=== PATIENT | female | born 1980 | race Caucasian/White ===

== ENCOUNTER 2020-06-09 13:40 | Outpatient (CLI) | payer MEDICAID, SELFPAY ==
--- NOTE | 2020-06-09 13:50 | US_ITS ---
WS: [id number] ULTRASOUND THYROID TECHNIQUE: Ultrasound of the thyroid. CLINICAL INFORMATION: THYROMEGALY/HYPOTHYROID COMPARISON: 4 [id number] FINDINGS: Thyroid: Right and left thyroid lobes are normal in size and echotexture. Right thyroid lobe: 4.9 cm x 1.8 cm x 2.3 cm Hypoechoic ill-defined region in the right thyroid measuring 12.5 mm x5.5 mm. Left thyroid lobe: 4.7 cm x 1.9 cm x 1.9 cm. Small hypoechoic nodule left thyroid measuring 6.5 x 3.0 mm Isthmus: 4.1 mm. Cervical lymphadenopathy: None. US/US thyroid [id number] IMPRESSION: 1. Small hypoechoic left thyroid nodule measuring 6.5 x 3.0 mm similar to 2019 . 2. Somewhat ill-defined hypoechoic region in the right thyroid measuring 12.9 x 5.5 mm. This is nonspecific and new or better seen today compared to 2019. 3. Otherwise no new findings. No lesions to target for biopsy. 4. Recommend continued annual surveillance.
== END 2020-06-09 13:41 | disposition home or self-care (01) ==
LOC: RAD 13:42
PROVIDERS: Family Provider Nurse Practitioner; PCP Nurse Practitioner; Visit Provider Nurse Practitioner Family
DX: E04.9 Nontoxic goiter, unspecified (principal); E03.9 Hypothyroidism, unspecified; E04.1 Nontoxic single thyroid nodule
CPT/HCPCS: 76536

== ENCOUNTER → 2022-03-15 12:13 | Outpatient (BNVA) | payer MEDICAID, SELFPAY | PROVIDERS: Family Provider Nurse Practitioner; PCP Nurse Practitioner Family; Visit Provider Nurse Practitioner Family | DX: R04.2 Hemoptysis (principal); E55.9 Vitamin D deficiency, unspecified; E03.8 Other specified hypothyroidism; M79.18 Myalgia, other site; J30.89 Other allergic rhinitis; F41.9 Anxiety disorder, unspecified; F32.A Depression, unspecified; M25.562 Pain in left knee; M79.10 Myalgia, unspecified site; M25.50 Pain in unspecified joint; Z11.59 Encounter for screening for other viral diseases; M25.561 Pain in right knee; W19.XXXA Unspecified fall, initial encounter; Y92.009 Unspecified place in unspecified non-institutional (private) residence as the place of occurrence of the external cause; I10 Essential (primary) hypertension; E04.1 Nontoxic single thyroid nodule; Z12.31 Encounter for screening mammogram for malignant neoplasm of breast; F17.200 Nicotine dependence, unspecified, uncomplicated | CPT/HCPCS: 80053; 80061; 82306; 84439; 84443; 84481; 84550; 85651; 86140; 86200; 86431; 86705; 86706; 86709; 86803; 87340 ==

== ENCOUNTER → 2022-03-21 09:38 | Outpatient (BNVA) | payer MEDICAID, SELFPAY | PROVIDERS: Family Provider Nurse Practitioner; PCP Nurse Practitioner Family; Visit Provider Nurse Practitioner Family | DX: R04.2 Hemoptysis (principal); M25.562 Pain in left knee; W19.XXXA Unspecified fall, initial encounter; Y92.009 Unspecified place in unspecified non-institutional (private) residence as the place of occurrence of the external cause; M25.561 Pain in right knee | CPT/HCPCS: 71047; 73562 ==

== ENCOUNTER → 2022-04-18 09:20 | Outpatient (BNVA) | payer MEDICAID, SELFPAY | PROVIDERS: Family Provider Nurse Practitioner; PCP Nurse Practitioner Family; Visit Provider Internal Medicine Pulmonary Disease | DX: J44.9 Chronic obstructive pulmonary disease, unspecified (principal); R06.02 Shortness of breath; F17.210 Nicotine dependence, cigarettes, uncomplicated | CPT/HCPCS: 36415; 80053; 82103; 83880; 85025; 99204 ==

== ENCOUNTER 2022-04-19 09:46 | Outpatient (CLI) | payer MEDICAID, SELFPAY ==
--- NOTE | 2022-04-19 10:15 | CT_ITS ---
WS: [id number] CT CHEST TECHNIQUE: Contrast enhanced CT of the chest with coronal and sagittal reformatted images. CLINICAL INFORMATION: COUGHING UP BLOOD COMPARISON: None. DLP: 760.[address] scans at [facility] use at least one of these dose optimization techniques: automated e xposure control; mA and/or kV adjustment per patient size (includes targeted exams where dose is matc hed to clinical indication); or iterative reconstruction. FINDINGS: Lungs are well aerated. No acute pulmonary infiltrates. No focal pneumonia or pleural fluid. No suspi cious pulmonary parenchymal abnormalities. Normal caliber thoracic aorta. No mediastinal or hilar lym phadenopathy. Cholecystectomy clips. Adrenal glands are normal. Normal GE junction. Normal portal vein and splenic vein. No axillary lymphadenopathy. CT/CT chest w con* [id number] IMPRESSION: 1. Both lungs are well aerated. No acute pulmonary abnormalities. 2. No acute pulmonary infiltrates. No evidence of interstitial lung disease. 3. No mediastinal or hilar lymphadenopathy. 4. Prior cholecystectomy. 5. No other suspicious abnormality.
[2022-04-19] MEDS: iohexol 300 mg/mL 100 mL Btl IV (10:46)
== END 2022-04-19 09:47 | disposition home or self-care (01) ==
LOC: RAD 09:49
PROVIDERS: PCP Nurse Practitioner Family; Visit Provider Nurse Practitioner Family
DX: R04.2 Hemoptysis (principal); F17.200 Nicotine dependence, unspecified, uncomplicated
CPT/HCPCS: 71260

== ENCOUNTER → 2022-05-23 16:56 | Outpatient (BNVA) | payer MEDICAID, SELFPAY | PROVIDERS: PCP Nurse Practitioner Family; Visit Provider Nurse Practitioner Family | DX: Z12.4 Encounter for screening for malignant neoplasm of cervix (principal); F17.200 Nicotine dependence, unspecified, uncomplicated | CPT/HCPCS: 88175 ==

== ENCOUNTER → 2022-07-17 17:03 | Outpatient (BNVA) | payer MEDICAID, SELFPAY | PROVIDERS: PCP Nurse Practitioner Family; Visit Provider Nurse Practitioner Family | DX: L08.9 Local infection of the skin and subcutaneous tissue, unspecified (principal); R42 Dizziness and giddiness | CPT/HCPCS: 80053 ==

== ENCOUNTER → 2022-07-20 08:48 | Outpatient (BNVA) | payer MEDICAID, SELFPAY | PROVIDERS: PCP Nurse Practitioner Family; Visit Provider Internal Medicine Pulmonary Disease | DX: R06.02 Shortness of breath (principal); J44.9 Chronic obstructive pulmonary disease, unspecified; Z71.6 Tobacco abuse counseling; G47.19 Other hypersomnia; F17.210 Nicotine dependence, cigarettes, uncomplicated | CPT/HCPCS: 99213 ==

== ENCOUNTER → 2022-09-25 16:41 | Outpatient (BNVA) | payer MEDICAID, SELFPAY | PROVIDERS: PCP Nurse Practitioner Family; Visit Provider Nurse Practitioner Family | DX: E78.00 Pure hypercholesterolemia, unspecified (principal); I10 Essential (primary) hypertension; E55.9 Vitamin D deficiency, unspecified; E78.2 Mixed hyperlipidemia; E03.8 Other specified hypothyroidism; M79.10 Myalgia, unspecified site; F32.A Depression, unspecified; F41.9 Anxiety disorder, unspecified; M25.50 Pain in unspecified joint | CPT/HCPCS: 80053; 80061; 82306; 82607; 83721; 84443 ==

== ENCOUNTER 2022-12-24 07:59 | Outpatient (CLI) | payer MEDICAID, SELFPAY ==
--- NOTE | 2022-12-24 | ECG_ITS ---
[facility] Test Date: 2022-12-24 Pat Name: Maria G Kyle Department: Room: Gender: Female Band Booker: : 1980 Requested By: Nakul Cliner Fish Order Number: [id number] Cruz MD: Jenniffer Mondragon M.D. Interpretive Statements NAME OF STUDY: EXERCISE SESTAMIBI STRESS TEST INDICATION: DYSPNEA ON EXERTION; SMOKER Baseline blood pressure of 115/79 mm Hg, heart rate of 71 beats per minute and oxygen saturation of 93%. EKG showed sinus rhythm, normal axis with normal ST-Ts. ??? The patient exercised for 8 minutes and 1 second on a [modified Ramsey protocol]. Patient attained a maximum heart rate of 153 beats per minute( 85 % of the maximum predicted heart rate) with a blood pressure at the peak exercise of 163/57 mm Hg and oxygen saturation of 93%. The EKG at the peak exercise revealed no significant ST-T wave changes. Patient did [not have any chest pain or any significant arrhythmis with the exercise]??? During the recovery phase, there were no new changes. ??? Blood pressure at the end of the recovery phase was 119/64 mm Hg with a heart rate of 104 beats per minute and oxygen saturation of 104 bpm. ??? CONCLUSION: 1. Normal EKG response to treadmill exercise. 2. No exercise-induced chest pain or cardiac arrhythmia. 3. Excellent exercise tolerance, attained a maximum of 9.9 METs. 4. Baseline normal blood pressure with normal response to exercise. 5. Perfusion scan will be documented separately. Electronically Signed On 12-27-2022 12:04:05 DIRECTOR OPERATIONS BROADCAST by Jenniffer Mondragon M.D. [id number]
[2022-12-24 08:19] VITALS: BMI 40.5
--- NOTE | 2022-12-24 08:24 | NMCV_ITS ---
NM christin perf SPECT r/s* [id number] Maria G Kyle Age: 42 Gender: F : 1980 Exam Date: 12/24/2022 09:34 Ordering Phys: Nakul Long MD Technologist: SHELBI Ricardo Exam Location: [facility] Indications: SHORTNESS OF BREATH STRESS TEST Please see separate stress test [facility] for full findings IMAGE PROTOCOL Rest/Stress 1 Exercise Day Radiopharmaceutical Dose (mCi) Administration Site Administered by Rest: Tc-99m 10.5 IV SHELBI Maxwell Sestamibi Stress:Tc-99m 32.4 IV SHELBI Maxwell Sestamibi Rest: 24-Dec-2022 60 Discovery 630 Stress: 24-Dec-2022 15 Discovery 630 Radiopharmaceutical was injected at 85 % maximum heart rate. Images obtained in supine and prone position. SPECT RESULTS Technical Quality: Excellent Raw Data Analysis: Normal Image Corrections: No attenuation or motion correction applied Summed Stress Score: 1 Summed Rest Score: 0 Summed Difference Score: 1 PERFUSION FINDINGS SPECT images demonstrate homogeneous tracer distribution throughout the myocardium. FUNCTIONAL RESULTS (calculated via Gated SPECT) Stress Image LV EF (%): 79 Stress EDV (mL):78 TID: 0.76 Stress ESV (mL):16 FUNCTIONAL FINDINGS: The left ventricle is normal in size. Transient Ischemia Dilatation of 0.76. There is normal left ventricular systolic function. The left ventricular ejection fraction is normal with a value of 79%. There is hyperdynamic left ventricular wall thickening. IMPRESSIONS 1. Myocardial perfusion imaging is normal. 2. Overall left ventricular systolic function is normal without regional wall motion abnormalities, LVEF=79%. 3. EKG portion of the study will be reported separately. 4. Scan indicates low risk for cardiac events. Jenniffer Mondragon MD (Electronically Signed) Final Date: 25 December 2022 23:02 S
[2022-12-24 10:58] VITALS: BP 116/64; PULSE 104
== END 2022-12-24 08:00 | disposition home or self-care (01) ==
LOC: CDL 08:04
PROVIDERS: PCP Nurse Practitioner Family; Visit Provider Internal Medicine Pulmonary Disease
DX: R06.09 Other forms of dyspnea (principal); F17.210 Nicotine dependence, cigarettes, uncomplicated; R06.02 Shortness of breath
CPT/HCPCS: 36415; 78452; 93017; A9500

== ENCOUNTER → 2023-02-07 10:31 | Outpatient (BNVA) | payer MEDICAID, SELFPAY | PROVIDERS: PCP Nurse Practitioner Family; Visit Provider Nurse Practitioner Family | DX: E78.2 Mixed hyperlipidemia (principal); I10 Essential (primary) hypertension; F41.9 Anxiety disorder, unspecified; E78.00 Pure hypercholesterolemia, unspecified; F32.A Depression, unspecified; E03.8 Other specified hypothyroidism; E55.9 Vitamin D deficiency, unspecified; J44.9 Chronic obstructive pulmonary disease, unspecified; R42 Dizziness and giddiness; G47.00 Insomnia, unspecified | CPT/HCPCS: 80053; 80061 ==

== ENCOUNTER → 2023-05-27 14:18 | Outpatient (BNVA) | payer MEDICAID, SELFPAY | PROVIDERS: PCP Nurse Practitioner Family; Visit Provider Otolaryngology | DX: G89.29 Other chronic pain (principal); H92.03 Otalgia, bilateral; M26.69 Other specified disorders of temporomandibular joint; M26.653 Arthropathy of bilateral temporomandibular joint | CPT/HCPCS: 99213 ==

== ENCOUNTER → 2023-06-12 14:15 | Outpatient (BNVA) | payer MEDICAID, SELFPAY | PROVIDERS: PCP Nurse Practitioner Family; Visit Provider Otolaryngology | DX: E04.1 Nontoxic single thyroid nodule (principal); R13.10 Dysphagia, unspecified; R04.2 Hemoptysis; F17.210 Nicotine dependence, cigarettes, uncomplicated | CPT/HCPCS: 31575; 99214 ==

== ENCOUNTER 2023-06-19 21:15 | Emergency (ER) | payer MEDICAID, SELFPAY ==
[2023-06-19 21:19] VITALS: BP 165/93; PULSE 96; RESP 18; TEMP 36.9; O2SAT 94; BMI 34.9
--- NOTE | 2023-06-19 22:00 | ED_ITS ---
HPI - Abdominal Pain General: Chief Complaint: Urogenital-Female Stated Complaint: vaginal pain Time Seen by Provider: 06/19/23 21:56 History of Present Illness: 42-year-old female comes in with right lower quadrant/pelvic pain starting this morning. Patient reports that the pain is intermittent. Patient did report some nausea and then some episodes of emesis tonight. Patient appears in mild to moderate pain. Patient appears nontoxic. Patient has a history of tubal ligation and gallbladder removal. Patient takes medications routinely for depression, high cholesterol, blood pressure, and thyroid. Last menstrual cycle was 1 month ago Associated Symptoms: Reports diarrhea, nausea and vomiting; Denies constipation and fever(s) Review of Systems General: Reports: 10 or more systems reviewed and unremarkable except in HPI and below Const: Denies: fever(s) Card: Denies: chest pain Resp: Denies: dyspnea GI: Reports: abdominal pain, nausea, vomiting and diarrhea; Denies: constipation : Reports: difficulty voiding Musc: Denies: neck pain or back pain Skin/Breast: Denies: rash Neuro: Denies: numbness in extremities PFSH ED PFSH: Medical History Adult onset hypothyroidism Anxiety and depression Environmental and seasonal allergies Lesion of labia Menorrhagia with regular cycle Myalgia of muscle of neck Vitamin D insufficiency Surgical History Hx of cholecystectomy 12/2012 Hx of dilation and curettage of uterus 1997,1999 Hx of tubal ligation 2002 Family History Other Cancer Diabetes Hypertension Social History Smoking and tobacco status: current every day smoker cigarettes Packs smoked per day: 1 Years cigarettes smoked: 23 [ Other cigarette details: 1ppd currently ] Alcohol intake: unknown Substance/Drug Use: unknown Marital status: Physical Exam Const: COMMON NORMALS: alert HENMT: COMMON NORMALS: normocephalic HEAD & SCALP: normocephalic Neck/C-Spine: COMMON NORMALS: full ROM Chest: COMMONS NORMALS: normal inspection of the chest Resp: COMMON NORMALS: normal respiratory effort and clear to auscultation bilaterally AUSCULTATION: clear to auscultation bilaterally Cardio: COMMON NORMALS: regular rate and regular rhythm RATE: regular rate RHYTHM: regular rhythm GI: COMMON NORMALS: Soft to palpation PALPATION: Yes Soft to palpation and Yes Tenderness to palpation present (GI) Details: RLQ : COMMON NORMALS: Yes no CVA tenderness BLADDER/KIDNEY EXAM: Yes no CVA tenderness Back/Pelvis: COMMON NORMALS: no CVA tenderness Extremity: COMMON NORMALS: normal to inspection Neuro: SENSORIUM/ORIENTATION: Yes alert Skin: COMMON NORMALS: turgor normal GENERAL SKIN EXAM: turgor normal Course Vital Signs: Vital signs: Vital Signs Temperature 98.4 F 06/19/23 21:19 Pulse Rate 82 06/20/23 01:16 Respiratory Rate 16 06/20/23 01:16 Blood Pressure 149/94 06/20/23 01:16 Pulse Oximetry 99 06/20/23 01:16 MDM - Abdominal Pain Medical Decision Making Patient comes in today with complaints of lower abdominal/pelvic pain. Patient states pain started this morning has been intermittent. Patient reported increased pain and discomfort tonight. Patient denied any other symptoms. Patient appeared nontoxic. Patient appears in mild to moderate pain. On exam patient had right lower quadrant abdominal tenderness. Vital signs are normal. Differential diagnosis includes but not limited to appendicitis, ovarian cyst, ectopic , renal calculi, UTI. CBC, CMP, and urinalysis showed no significant abnormalities except a mild increase in white blood cells that 10.9 thousand. Urinalysis was clean. CT of the abdomen and pelvis noted no acute signs of appendicitis but did note bilateral ovarian cyst. Ultrasound was then performed and noted good blood flow to both ovaries and a large hemorrhagic cyst to the right ovary approximately 3.5 cm with recommendation of repeat evaluation in 6 weeks for resolution. Reviewed this with patient who reported understan ding of care plan and need for follow-up or return to the ER. Lab Data 06/19/23 22:03 06/19/23 22:03 Labs/Radiology: Radiology Impressions Abdomen/Pelvis CT 06/19/23 22:16 IMPRESSION: 1. No acute findings in the abdomen and pelvis. No evidence of acute appendicitis. 2. Sclerosis of the right pubic body, unclear if this is degenerative in etiology given cystic change at the pubic symphysis. REFERENCES: Bhupendra et al. Management of Incidental Adnexal Findings on CT and MRI: A White Paper of the ACR Incidental Findings Committee, J Am Bambi Radiol. 2019;17(2):248-254. Pelvis Ultrasound 06/19/23 23:04 IMPRESSION: 1. Right ovarian cystic lesion measuring 3.5 cm with internal septations. Imaging appearance most suggestive of a hemorrhagic cyst, but there is questionable internal blood flow which may be artifactual. Recommend pelvic ultrasound in 6 weeks to document resolution. 2. No sonographic evidence of ovarian torsion. 3. Uterine fibroids as above. Laboratory Results WBC 10.9 10^3/uL (4.0-10.0) H 06/19/23 22:03 RBC 4.80 10^6/uL (4.1-5.3) 06/19/23 22: Hgb 14.6 g/dL (11.5-15.3) 06/19/23 22:03 Hct 42.3 % (37.0-47.0) 06/19/23 22:03 MCV 88.1 fl (81-99) 06/19/23 22:03 MCH 30.4 pg (28.0-34.0) 06/19/23 22:03 MCHC 34.5 g/dL (30.0-36.0) 06/19/23 22: RDW 13.0 % (12.1-15.1) 06/19/23 22:03 Plt Count 221 10^3/cmm (130-400) 06/19/23 22:03 MPV 10.4 fL (7.4-10.4) 06/19/23 22:03 Neut % (Auto) 59.6 % 06/19/23 22:03 Lymph % (Auto) 31.0 % 06/19/23 22:03 [place] % (Auto) 6.4 % 06/19/23 22:03 Eos % (Auto) 2.0 % 06/19/23 22: Baso % (Auto) 0.7 % 06/19/23 22:03 Neut # (Auto) 6.50 10^3/uL (1.8-7.7) 06/19/23 22:03 Lymph # (Auto) 3.4 10^3/uL (0.8-4.8) 06/19/23 22:03 [place] # (Auto) 0.7 10^3/uL (0.2-0.9) 06/19/23 22:03 Eos # (Auto) 0.2 10^3/uL (0.0-0.8) 06/19/23 22:03 Baso # (Auto) 0.1 10^3/uL (0.0-0.1) 06/19/23 22:03 Nucleated RBC % (auto) 0 % 06/19/23 22:03 Nucleated RBCs # 0.0 /100WBC 06/19/23 22:03 Sodium 137 mmol/L (136-145) 06/19/23 22:03 Potassium 3.8 mmol/L (3.5-5.1) 06/19/23 22:03 Chloride 101 mmol/L (98-107) 06/19/23 22:03 Carbon Dioxide 26 mmol/L (22-29) 06/19/23 22:03 Anion Gap 13.8 (5-19) 06/19/23 22:03 BUN 4 mg/dL (6-20) L 06/19/23 22:03 Creatinine 0.9 mg/dL (0.5-0.9) 06/19/23 22:03 GFR Calculation 68.7 mL/min (90-130) L 06/19/23 22:03 Glucose 116 mg/dL (65-115) H 06/19/23 22:03 Calculated Osmolality 282 mOsm/kg (285-295) L 06/19/23 22:03 Calcium 8.8 mg/dL (8.5-10.5) 06/19/23 22:03 Total Bilirubin 0.2 mg/dL (0.15-1.2) 06/19/23 22:03 AST 15 U/L (0-32) 06/19/23 22:03 ALT 16 U/L (0-33) 06/19/23 22:03 Alkaline Phosphatase 97 U/L (35-105) 06/19/23 22:03 Total Protein 7.2 g/dL (6.6-8.7) 06/19/23 22:03 Albumin 4.2 g/dL (3.5-5.2) 06/19/23 22:03 Globulin 3.0 g/dL (1.3-4.6) 06/19/23 22:03 HCG, Qual Negative (Negative) 06/19/23 22:17 Urine Color Colorless (Yellow) 06/19/23 22:17 Urine Appearance Clear (CLEAR) 06/19/23 22:17 Urine pH 6 (5-7) 06/19/23 22:17 Ur Specific Elbert 1.005 (1.005-1.030) 06/19/23 22:17 Urine Protein Neg (Negative) 06/19/23 22:17 Urine Glucose (UA) Norm (Normal) 06/19/23 22:17 Urine Ketones Negative (Negative) 06/19/23 22:17 Urine Blood Neg (Negative) 06/19/23 22:17 Urine Nitrate Negative (Negative) 06/19/23 22:17 Urine Bilirubin Neg (Negative) 06/19/23 22:17 Urine Urobilinogen Neg mg/dL (Negative) 06/19/23 22:17 Ur Leukocyte Esterase Negative (Negative) 06/19/23 22:17 Discharge Plan Discharge Patient Disposition: Home Clinical Impression: Hemorrhagic cyst of right ovary Condition: Stable Prescriptions: No Action tizanidine 2 mg capsule 2 mg PO .hs albuterol sulfate [Ventolin HFA] 90 mcg/actuation HFA aerosol inhaler 1 inh inhalation QID PRN (Reason: shortness of breath or wheezing) Qty: 8.5 3RF cholecalciferol (vitamin D3) 1,250 mcg (50,000 unit) capsule 50,000 unit PO ONCE 30 Days Qty: 2 5RF Rx Instructions: Once capsule on the 1st and 16th of each month. duloxetine 40 mg capsule,delayed release(DR/EC) 40 mg PO DAILY 30 Days Qty: 30 5RF levothyroxine [Euthyrox] 100 mcg tablet 100 mcg PO DAILY 30 Days Qty: 30 5RF lisinopril 10 mg tablet 10 mg PO DAILY 30 Days Qty: 30 5RF meclizine 25 mg tablet 25 mg PO TID Qty: 90 1RF montelukast [Singulair] 10 mg tablet 10 mg PO QDAY 30 Days Qty: 30 5RF simvastatin 20 mg tablet 20 mg PO .QHS 30 Days Qty: 30 5RF Spiriva with HandiHaler 18 mcg capsule, w/inhalation device 1 cap inhalation DAILY 30 Days Qty: 30 5RF Rx Instructions: puncture 1 cap using device; one dose = 2 inhalations pantoprazole [Protonix] 40 mg tablet,delayed release (DR/EC) 40 mg PO DAILY 30 Days Qty: 30 3RF docusate sodium [DSS] 250 mg capsule 250 mg PO BID 30 Days Qty: 60 0RF fexofenadine-pseudoephedrine [Kyung-D 12 Hour] 60-120 mg tablet extended release 12 hr 1 tab PO Q12H PRN (Reason: nasal congestion) Qty: 20 1RF zolpidem [Ambien] 5 mg tablet 5 mg PO .QHS 30 Days Qty: 30 1RF Discharge Orders: Discharge ED (Routine); Ordered 06/20/23 Ordered By: Neal Aguero Referrals: Claudia Felix NP [Primary Care Provider] - Discharge Diet: Usual diet Discharge Activity: Increase activity as tolerated Patient Instructions: Ovarian Cyst (ED) Activity Restrictions/Additional Instructions: Continue with routine medications. Follow-up with primary care. Is strongly recommended for you to have a repeat ultrasound in 6 weeks. Return to ER as needed for worsening symptoms such as high fever, inability to hold fluids down, or new concerns. Coding Level of Care Code ED Underground Repairer for Kimberley Moreira
[2023-06-19 22:11] LABS: Basophils # 0.1 10^3/uL (0.0-0.1); Basophils % 0.7 %; Eosinophils # 0.2 10^3/uL (0.0-0.8); Hematocrit 42.3 % (37.0-47.0); Hemoglobin 14.6 g/dL (11.5-15.3); Lymphocytes # 3.4 10^3/uL (0.8-4.8); Mean Corpuscular HGB Conc 34.5 g/dL (30.0-36.0); Mean Corpuscular Hemoglobin 30.4 pg (28.0-34.0); Mean Corpuscular Volume 88.1 fl (81-99); Mean Platelet Volume 10.4 fL (7.4-10.4); Monocytes # 0.7 10^3/uL (0.2-0.9); Monocytes % 6.4 %; Neutrophils % 59.6 %; Nucleated Red Blood Cells % 0 %; Platelet Count 221 10^3/cmm (130-400); White Blood Count 10.9 10^3/uL (4.0-10.0)
--- NOTE | 2023-06-19 22:16 | CTR_ITS ---
PROCEDURE INFORMATION: Exam: CT Abdomen And Pelvis With Contrast Exam date and time: 06/19/2023 10:50 PM Age: 42 years old Clinical indication: Abdominal pain; Localized; Lower; Prior surgery; Surgery date: 6+ months; Surgery type: Btl; Additional info: Rlq pain, n/v TECHNIQUE: Imaging protocol: Computed tomography of the abdomen and pelvis with contrast. Radiation optimization: All CT scans at this facility use at least one of these dose optimization techniques: automated exposure control; mA and/or kV adjustment per patient size (includes targeted exams where dose is matched to clinical indication); or iterative reconstruction. Contrast material: OMNIPAQUE 350; Contrast volume: 100 ml; Contrast route: INTRAVENOUS (IV); REPORTING DATA: Count of CT and Cardiac NM exams in prior 12 months: This patient has received [address] and 0 known cardiac nuclear medicine studies in the 12 months prior to the current study. COMPARISON: CT chest w con* [id number] 04/19/2022 10:03 AM RADIATION DOSE METRICS: Total DLP (mGy-cm): 983.02 FINDINGS: Liver: Unremarkable. Gallbladder and bile ducts: Status post cholecystectomy. Pancreas: Unremarkable. Spleen: Unremarkable. Adrenal glands: Unremarkable. Kidneys and ureters: Unremarkable. No hydronephrosis. Stomach and bowel: Unremarkable. No bowel obstruction. Appendix: No evidence of appendicitis. Intraperitoneal space: Trace free fluid in the pelvic cul-de-sac which may be physiologic. Vasculature: Minimal atherosclerotic disease in the abdomen and pelvis. Lymph nodes: Unremarkable. Urinary bladder: Unremarkable as visualized. Reproductive: Retroverted uterus. Bilateral ovarian cysts up to 4.4 cm on the right, no follow-up imaging is recommended. (Reference: Bhupendra) . Bones/joints: Sclerosis of the right pubic body Soft tissues: Unremarkable. CT/CT abdomen pelvis w con* [id number] IMPRESSION: 1. No acute findings in the abdomen and pelvis. No evidence of acute appendicitis. 2. Sclerosis of the right pubic body, unclear if this is degenerative in etiology given cystic change at the pubic symphysis. REFERENCES: Bhupendra et al. Management of Incidental Adnexal Findings on CT and MRI: A White Paper of the ACR Incidental Findings Committee, J Am Bambi Radiol. 2019;17(2):248-254.
[2023-06-19 22:21] LABS: Add Urine Microscopic? NO; Charge for UA Resulting for Rev
[2023-06-19 22:31] LABS: HCG Qualitative Urine. Negative (Negative)
[2023-06-19 22:32] LABS: Bilirubin Urine Neg (Negative); Blood Urine Neg (Negative); Glucose Urine UA Norm (Normal); Ketones Urine Negative (Negative); Leukocyte Esterase Urine Negative (Negative); Nitrate Urine Negative (Negative); Protein Urine Neg (Negative); Specific Gravity, Urine 1.005 (1.005-1.030); Urine Appearance Clear (CLEAR); Urine Color Colorless (Yellow); Urobilinogen Urine Neg (Negative); pH Urine 6 (5-7)
[2023-06-19] MEDS: iohexol 350 mg/mL 500 mL Btl (per mL) IV (22:46)
[2023-06-19 22:48] LABS: Alanine Aminotransferase 16 U/L (0-33); Albumin Level 4.2 g/dL (3.5-5.2); Alkaline Phosphatase 97 U/L (35-105); Anion Gap 13.8 (5-19); Aspartate Amino Transferase 15 U/L (0-32); Blood Urea Nitrogen 4 mg/dL (6-20); Calcium 8.8 mg/dL (8.5-10.5); Carbon Dioxide 26 mmol/L (22-29); Chloride 101 mmol/L (98-107); Glomerular Filtration Rate 68.7 mL/min (90-130); Glucose 116 mg/dL (65-115); Osmolality Calculated 282 mOsm/kg (285-295); Potassium 3.8 mmol/L (3.5-5.1); Sodium 137 mmol/L (136-145); Total Bilirubin 0.2 mg/dL (0.15-1.2); Total Protein 7.2 g/dL (6.6-8.7)
--- NOTE | 2023-06-19 23:04 | USR_ITS ---
PROCEDURE INFORMATION: Exam: US Nonobstetric Pelvis; Complete Exam date and time: 06/20/2023 12:14 AM Age: 42 years old Clinical indication: Pelvic pain; Additional info: Right ovarian cyst, R/O torsion TECHNIQUE: Imaging protocol: Transabdominal pelvic nonobstetric ultrasound. Complete exam. Real time ultrasound with image documentation. COMPARISON: CT abdomen pelvis w con* [id number] 06/19/2023 10:50 PM FINDINGS: Uterus: Right anterior intramural fibroid measuring 1.8 x 1.7 cm. Left intramural fibroid measuring 2.2 x 1.8 cm. Right ovary/adnexa: Right ovarian cystic lesion measuring 3.5 cm with lacy internal septations. Blood flow obtained in the right ovary. Questionable internal flow within this cystic lesion. Left ovary/adnexa: Ovarian cyst measuring 2.2 cm with minimal internal complexity. Blood flow obtained. Intraperitoneal space: Trace free fluid in the pelvis. Urinary bladder: Underdistended and not well evaluated. US/US pelvic limited [id number] IMPRESSION: 1. Right ovarian cystic lesion measuring 3.5 cm with internal septations. Imaging appearance most suggestive of a hemorrhagic cyst, but there is questionable internal blood flow which may be artifactual. Recommend pelvic ultrasound in 6 weeks to document resolution. 2. No sonographic evidence of ovarian torsion. 3. Uterine fibroids as above.
[2023-06-20 01:16] VITALS: BP 149/94; PULSE 82; RESP 16; O2SAT 99
== END 2023-06-20 01:36 | disposition home or self-care (01) ==
PROVIDERS: Emergency Medicine; Emergency Provider Nurse Practitioner Family; PCP Nurse Practitioner Family
DX: N83.201 Unspecified ovarian cyst, right side (principal); F17.210 Nicotine dependence, cigarettes, uncomplicated
CPT/HCPCS: 36415; 74177; 76857; 80053; 81003; 81025; 85025; 99285; Q9967

== ENCOUNTER → 2023-06-24 10:32 | Outpatient (BNVA) | payer MEDICAID, SELFPAY | PROVIDERS: PCP Nurse Practitioner Family; Visit Provider Nurse Practitioner Family | DX: E03.8 Other specified hypothyroidism (principal); E78.2 Mixed hyperlipidemia; E78.1 Pure hyperglyceridemia; R10.9 Unspecified abdominal pain; E04.1 Nontoxic single thyroid nodule; I10 Essential (primary) hypertension; F41.9 Anxiety disorder, unspecified; F32.A Depression, unspecified; E55.9 Vitamin D deficiency, unspecified; Z78.9 Other specified health status | CPT/HCPCS: 80053; 80061; 82150; 82306; 83690; 83721; 84443 ==

== ENCOUNTER 2023-06-27 09:44 | Outpatient (CLI) | payer MEDICAID, SELFPAY ==
--- NOTE | 2023-06-27 10:00 | US_ITS ---
WS: [id number] THYROID ULTRASOUND HISTORY: thyroid nodule COMPARISON: 06/09/2020 Right lobe: 2.0 cm x 2.0 cm x 5.2 cm (w x ap x l). Volume: 10.9 cm3. Normal sized gland. No nodule or mass identified. Normal vascularity. Left lobe: 1.9 cm x 1.7 cm x 4.4 cm (w x ap x l). Volume: 7.5 cm3. Normal sized gland. Again noted is the spongiform nodule in the mid gland 4 x 3 x 5 mm similar to the prior study. No suspicious mass. No echogenic foci. Isthmus: 0.4 cm. IMPRESSION: TI-RADS 2. Stable thyroid.
== END 2023-06-27 09:45 | disposition home or self-care (01) ==
PROVIDERS: PCP Nurse Practitioner Family; Visit Provider Otolaryngology
DX: E04.1 Nontoxic single thyroid nodule (principal)
CPT/HCPCS: 76536

== ENCOUNTER → 2023-07-03 11:27 | Outpatient (BNVA) | payer MEDICAID, SELFPAY | PROVIDERS: PCP Nurse Practitioner Family; Visit Provider Otolaryngology | DX: Z09 Encounter for follow-up examination after completed treatment for conditions other than malignant neoplasm (principal); E04.1 Nontoxic single thyroid nodule; K21.9 Gastro-esophageal reflux disease without esophagitis | CPT/HCPCS: 99212 ==

== ENCOUNTER → 2023-09-25 09:42 | Outpatient (BNVA) | payer MEDICAID, SELFPAY | PROVIDERS: PCP Nurse Practitioner Family; Visit Provider Nurse Practitioner Family | DX: E04.1 Nontoxic single thyroid nodule (principal); E03.8 Other specified hypothyroidism; E78.1 Pure hyperglyceridemia; G47.00 Insomnia, unspecified; E78.2 Mixed hyperlipidemia; I10 Essential (primary) hypertension | CPT/HCPCS: 80053; 80061; 84443; 85025 ==

== ENCOUNTER 2023-12-27 12:04 | Outpatient (CLI) | payer MEDICAID, SELFPAY ==
--- NOTE | 2023-12-27 12:08 | XR_ITS ---
WS: [id number] Left shoulder, 3 views, 12/27/2023 Clinical Data: L SHOULDER PAIN Comparison: None. Findings: No fractures or dislocations are seen. The AC joint is normal. The adjacent left clavicle, left scapu la and ribs are normal. The soft tissues are unremarkable. Impression: Negative left shoulder.
== END 2023-12-27 12:05 | disposition home or self-care (01) ==
LOC: RAD 12:05
PROVIDERS: PCP Nurse Practitioner Family; Visit Provider Nurse Practitioner Family
DX: M25.512 Pain in left shoulder (principal)
CPT/HCPCS: 73030

== ENCOUNTER 2023-12-31 16:35 | Outpatient (CLI) | payer MEDICAID, SELFPAY ==
--- NOTE | 2023-12-31 16:40 | XR_ITS ---
WS: [id number] EXAM: 4 view cervical spine. INDICATION: Neck pain shoulder pain left hand numbness. Exam date 12/31/2023. COMPARISON: None. The CHIO does not appear widened however it is obscured by overlying stylomastoid processes. The C1-2 relationship is intact. There is no prevertebral swelling. There is no anterior wedging or compression. There is no subluxation. There is dominant disc space narrowing with posterior and anterior osteophytes at C6-7. Mild degenera tive changes are also noted at C4-5 and C5-6. IMPRESSION: Degenerative changes of the cervical spine are noted. This is dominant at C6-7 with disc space narrow ing as well as posterior and anterior osteophytes.
== END 2023-12-31 16:36 | disposition home or self-care (01) ==
PROVIDERS: PCP Nurse Practitioner Family; Visit Provider Nurse Practitioner Family
DX: M47.812 Spondylosis without myelopathy or radiculopathy, cervical region (principal); M25.78 Osteophyte, vertebrae
CPT/HCPCS: 72040

== ENCOUNTER → 2024-01-16 13:04 | Outpatient (BNVA) | payer MEDICAID, SELFPAY | PROVIDERS: PCP Nurse Practitioner Family; Visit Provider Nurse Practitioner Family | DX: I10 Essential (primary) hypertension (principal); F41.9 Anxiety disorder, unspecified; F32.A Depression, unspecified; E78.2 Mixed hyperlipidemia; E78.00 Pure hypercholesterolemia, unspecified; E03.8 Other specified hypothyroidism; E55.9 Vitamin D deficiency, unspecified | CPT/HCPCS: 80053; 80061; 84443; 85025 ==

== ENCOUNTER → 2024-01-20 14:30 | Outpatient (BNVA) | payer MEDICAID, SELFPAY | PROVIDERS: PCP Nurse Practitioner Family; Referring Provider Nurse Practitioner Family; Visit Provider Specialist | DX: M25.512 Pain in left shoulder (principal) | CPT/HCPCS: 99204 ==

== ENCOUNTER → 2024-01-30 14:33 | Outpatient (BNVA) | payer MEDICAID, SELFPAY | PROVIDERS: PCP Nurse Practitioner Family; Referring Provider Nurse Practitioner Family; Visit Provider Orthopaedic Surgery | DX: M47.22 Other spondylosis with radiculopathy, cervical region (principal); M54.2 Cervicalgia | CPT/HCPCS: 72050; 99204 ==

== ENCOUNTER 2024-05-21 23:53 | Emergency (ER) | payer MEDICAID, SELFPAY ==
[2024-05-21 23:59] VITALS: BP 147/92; PULSE 88; RESP 16; TEMP 36.7; O2SAT 97
--- NOTE | 2024-05-22 00:15 | XRR_ITS ---
PROCEDURE INFORMATION: Exam: XR Chest Exam date and time: 05/22/2024 12:21 AM Age: 43 years old Clinical indication: Angina; Additional info: Chest pain TECHNIQUE: Imaging protocol: Radiologic exam of the chest. Views: 1 view. COMPARISON: CT chest w con* [id number] 04/19/2022 10:03 AM FINDINGS: Lungs: Unremarkable. No consolidation. Pleural spaces: Unremarkable. No pleural effusion. No pneumothorax. Heart/Mediastinum: Unremarkable. No cardiomegaly. Bones/joints: Unremarkable. XR/XR chest 1V portable [id number] IMPRESSION: No acute findings.
--- NOTE | 2024-05-22 00:15 | ECG_ITS ---
[facility] Test Date: 2024-05-21 Pat Name: Maria G Kyle Department: Room: Gender: Female Healthcare Interpreter: : 1980 Requested By: Dayanna Pedro Order Number: [id number] Cruz MD: Loc Cabrera M.D. Measurements Intervals [place] Rate: 88 P: 37 CT: 196 QRS: 32 QRSD: 89 T: 55 QT: 367 QTc: 445 Interpretive Statements SINUS RHYTHM Normal ECG No previous ECG available for comparison Electronically Signed On 05-22-2024 8:52:11 CDT by Loc Cabrera M.D. [id number] f
[2024-05-22 00:27] VITALS: BP 165/93; PULSE 88; RESP 14; O2SAT 98
[2024-05-22 00:35] LABS: Basophils # 0.1 10^3/uL (0.0-0.1); Basophils % 0.7 %; Eosinophils # 0.2 10^3/uL (0.0-0.8); Hematocrit 41.4 % (36-47); Lymphocytes # 3.5 10^3/uL (0.8-4.8); Lymphocytes % 34.3 %; Mean Corpuscular HGB Conc 34.3 g/dL (30-55); Mean Corpuscular Hemoglobin 30.6 pg (27-33); Mean Corpuscular Volume 89.2 fl (85-98); Mean Platelet Volume 10.6 fL (7.4-10.4); Monocytes # 0.8 10^3/uL (0.2-0.9); Monocytes % 8.3 %; Neutrophils % 54.4 %; Nucleated Red Blood Cells % 0 %; Platelet Count 203 10^3/cmm (157-399); Red Blood Count 4.64 10^6/uL (3.85-5.65); White Blood Count 10.11 10^3/uL (3.29-11.43)
[2024-05-22 00:56] LABS: Alanine Aminotransferase 21 U/L (0-33); Albumin Level 4.1 g/dL (3.5-5.2); Alkaline Phosphatase 90 U/L (35-105); Anion Gap 14.9 (5-19); Aspartate Amino Transferase 19 U/L (0-32); Blood Urea Nitrogen 10 mg/dL (6-20); Carbon Dioxide 26 mmol/L (22-29); Chloride 101 mmol/L (98-107); Creatinine Clr Calc Pharmacy 112.6393; Globulin 3.1 g/dL (1.3-4.6); Glomerular Filtration Rate 78.3 mL/min (90-130); Glucose 124 mg/dL (65-115); Osmolality Calculated 286 mOsm/kg (285-295); Potassium 3.9 mmol/L (3.5-5.1); Sodium 138 mmol/L (136-145); Total Bilirubin 0.3 mg/dL (0.15-1.2); Total Protein 7.2 g/dL (6.6-8.7)
[2024-05-22 00:58] LABS: ABG PCO2 37.5 mmHg (35-45); ABG PH Result 7.45 (7.35-7.45); Alveolar-Arterial Oxygen Gradi 1.2 mmHg (5-10); Arterial Blood Gas Hematocrit 45.1 % (37-47); Base Excess ABG 1.9 mmol/L (-2.0-2.0); Blood Gas Allen Test Pos; Blood Gas Sample Site Radial, left; Blood Gas Sample Type Arterial; Carboxyhemoglobin 4.9 %THgb (0.4-20.1); HCO3 ABG 25.8 mmol/L (22-26); HGB O2 Sat 93.5 % (95-100); Ionized Calcium Level - ABG 1.2 mmol/L (1.1-1.4); Methemoglobin 0.3 % (0.4-1.5); Oxygen Saturation ABG 98.6; PO2 ABG 93.1 mmHg (80.0-100.0); PO2 FiO2 Ratio Arterial Blood 443; Potassium Level - ABG 3.7 mmol/L (3.5-5.0); Total Hemoglobin 14.7 g/dL (12-16)
[2024-05-22 00:59] LABS: Troponin(5th) Baseline < 6 ng/L (0-10)
[2024-05-22 02:07] VITALS: BP 126/87; PULSE 95; RESP 16; O2SAT 95
--- NOTE | 2024-05-22 02:15 | ECG_ITS ---
[facility] Test Date: 2024-05-22 Pat Name: Maria G Kyle Department: Room: Gender: Female Community Support Professional: : 1980 Requested By: Dayanna Pedro Order Number: [id number] Cruz MD: Loc Cabrera M.D. Measurements Intervals [place] Rate: 85 P: 28 IL: 145 QRS: 36 QRSD: 89 T: 63 QT: 362 QTc: 433 Interpretive Statements SINUS RHYTHM No previous ECG available for comparison Electronically Signed On 05-22-2024 11:45:20 CDT by Loc Cabrera M.D. [id number]
[2024-05-22 02:26] LABS: Troponin 5 2HR Delta 0.00001 ABS# (0-10)
--- NOTE | 2024-05-22 02:51 | W.ED.CHESTPA ---
HPI - Chest Pain General: Chief Complaint: Chest Pain Stated Complaint: Chest Pains Time Seen by Provider: 05/22/24 00:14 History of Present Illness: 43-year-old female who presents to the emergency room with chest pain has been going on for several hours. She describes some tightness and some sharp pains. She does say that she has had some anxiety. She says she had some tingling in her hands. No cough. No nausea or vomiting. No diaphoresis. Review of Systems Narrative: Constitutional symptoms: Negative except as documented in HPI. Skin symptoms: Negative except as documented in HPI. Eye symptoms: Negative except as documented in HPI. ENMT symptoms: Negative except as documented in HPI. Respiratory symptoms: Negative except as documented in HPI. Cardiovascular symptoms: Negative except as documented in HPI. Gastrointestinal symptoms: Negative except as documented in HPI. Genitourinary symptoms: Negative except as documented in HPI. Musculoskeletal symptoms: Negative except as documented in HPI. Neurologic symptoms: Negative except as documented in HPI. Psychiatric symptoms: Negative except as documented in HPI. Endocrine symptoms: Negative except as documented in HPI. [facility] ED PFSH: Medical History Lesion of labia Menorrhagia with regular cycle Anxiety and depression Environmental and seasonal allergies Myalgia of muscle of neck Adult onset hypothyroidism Vitamin D insufficiency Surgical History Hx of dilation and curettage of uterus 1997,1999 Hx of cholecystectomy 12/2012 Hx of tubal ligation 2001 Family History Other Cancer Diabetes Hypertension Social History Smoking and tobacco/nicotine status: current every day tobacco/nicotine user cigarettes Packs smoked per day: 1 Years cigarettes smoked: 23 [ Other cigarette details: 1ppd currently ] Alcohol intake: unknown Substance/Drug Use: unknown Marital status: Physical Exam Narrative: EXAM NARRATIVE: General: Alert, no acute distress. Skin: Warm, dry. Head: Normocephalic, atraumatic. Neck: Supple, trachea midline. Eye: Extraocular movements are intact. Ears, nose, mouth and throat: mucosa moist. Cardiovascular: Regular, Normal peripheral perfusion. Respiratory: Lungs are clear to auscultation, respirations are non-labored, breath sounds are equal, Symmetrical chest wall expansion. Gastrointestinal: Soft, Nontender, Non distended Musculoskeletal: Normal ROM, no deformity. Neurological: Alert and oriented, No focal neurological deficit observed. Psychiatric: Cooperative, appropriate mood & affect. Course Vital Signs: Vital signs: Vital Signs Temperature 98.1 F 05/21/24 23:59 Pulse Rate 95 05/22/24 02:07 Respiratory Rate 16 05/22/24 02:07 Blood Pressure 126/87 05/22/24 02:07 Pulse Oximetry 95 05/22/24 02:07 Oxygen Delivery Me thod Room Air 05/21/24 23:59 MDM - Chest Pain Medical Decision Making Differential diagnosis for patient with chest pain includes but is not limited to and based on the above HPI, review of systems and physical exam: Pneumonia. unstable angina. angina. Acute coronary syndrome / [place]. Pulmonary embolism. Costochondritis / musculoskeletal. Pleurisy. Pericarditis. Esophageal spasm. Pancreatis. Cholecystitis. Orders placed to evaluate differential diagnosis based on the above differential, HPI and physical exam EKG: Time 2352. Rate 88. Normal sinus rhythm, No ST-T changes, no ectopy, normal VT & QRS intervals, This was reviewed and interpreted by myself the ER physician at 2356 Repeat EKG: Time 1:59 AM. Rate 85. Normal sinus rhythm, No ST-T changes, no ectopy, normal VT & QRS intervals, This was reviewed and interpreted by myself the ER physician at 2:02 AM. No change from previous EKG. Chest x-ray: No acute process. No infiltrate. No pneumothorax. This was reviewed and interpreted by myself the ER physician. Lab Review: Laboratory results were reviewed and interpreted by myself the emergency room physician. Lab work is unremarkable. No leukocytosis. No anemia. No renal failure. No elevation in serial troponins. Emergency Department Assessment of Chest Pain Score (EDACS) from [email or web address] on 05/22/2024 All calculations should be rechecked by clinician prior to use RESULT SUMMARY: 2 points Low risk by the EDACS Score. If the patient also has: (1) EKG without new ischemic changes and (2) negative initial and 2-hour troponins, then this patient is safe for discharge to early outpatient follow-up investigation (or proceed to earlier inpatient testing). If EKG with ischemic changes or positive troponin, they are not low risk and require normal risk stratification. INPUTS: Age ?> 43 years Sex ?> 0 = Female Known coronary artery disease or >= risk factors ?> 0 = No Diaphoresis ?> 0 = No Pain radiates to arm, shoulder, neck, or jaw ?> 0 = No Pain occurred or worsened with inspiration ?> 0 = No Pain is reproduced by palpation ?> 0 = No I reviewed the patient's medical record. Reexamination: Patient remained stable. No increased work of breathing. No altered mental status. No focal motor deficits. Assessment and plan: Chest pain, noncardiac - Discharged home - Discussed findings and plan with patient. Answered any questions. - All laboratory values were reviewed and interpreted personally by myself, the ER physician - All imaging was reviewed and interpreted personally by myself, the ER physician. - Evaluation and treatment of this problem were appropriate in the emergency setting Lab Data 05/22/24 00:28 05/22/24 00:28 Radiology Impressions Chest X-Ray 05/22/24 00:15 IMPRESSION: No acute findings. Laboratory Results WBC 10.11 10^3/uL (3.29-11.43) 05/22/24: RBC 4.64 10^6/uL (3.85-5.65) 05/22/24: Hgb 14.20 g/dL (11.27-16.99) 05/22/24: Hct 41.4 % (36-47) 05/22/24: MCV 89.2 fl (85-98) 05/22/24: MCH 30.6 pg (27-33) 05/22/24: MCHC 34.3 g/dL (30-55) 05/22/24: RDW 12.0 % (12.1-15.1) L 05/22/24: Plt Count 203 10^3/cmm (157-399) 05/22/24: MPV 10.6 fL (7.4-10.4) H 05/22/24: Neut % (Auto) 54.4 % 05/22/24: Lymph % (Auto) 34.3 % 07/12/24 00:28 [place] % (Auto) 8.3 % 05/22/24 00:28 Eos % (Auto) 2.0 % 05/22/24 00:28 Baso % (Auto) 0.7 % 05/22/24 00:28 Neut # (Auto) 5.50 10^3/uL (1.8-7.7) 05/22/24 00:28 Lymph # (Auto) 3.5 10^3/uL (0.8-4.8) 05/22/24 00:28 [place] # (Auto) 0.8 10^3/uL (0.2-0.9) 05/22/24 00:28 Eos # (Auto) 0.2 10^3/uL (0.0-0.8) 05/22/24 00: Baso # (Auto) 0.1 10^3/uL (0.0-0.1) 05/22/24 00:28 Nucleated RBC % (auto) 0 % 05/22/24 00: Nucleated RBCs # 0.0 /100WBC 05/22/24 00:28 Specimen Type Arterial 05/22/24 00:45 Sample Site Radial, left 07 00:45 ABG pH 7.45 (7.35-7.45) 05/22/24 00:45 ABG pCO2 37.5 mmHg (35-45) 05/22/24 00:45 ABG pO2 93.1 mmHg (80.0-100.0) 05/22/24 00:45 ABG PO2/FiO2 Ratio 443 05/22/24 00:45 ABG HCO3 25.8 mmol/L (22-26) 05/22/24 00:45 ABG O2 Saturation 98.6 05/22/24 00:45 ABG Base Excess 1.9 mmol/L (-2.0-2.0) 05/22/24 00:45 Star Test Pos 05/22/24 00:45 A-a O2 Gradient 1.2 mmHg (5-10) L 05/22/24 00:45 Hematocrit 45.1 % (37-47) 05/22/24 00:45 Hgb O2 Saturation 93.5 % (95-100) L 05/22/24 00:45 Carboxyhemoglobin 4.9 %THgb (0.4-20.1) 05/22/24 00:45 Methemoglobin 0.3 % (0.4-1.5) L 05/22/24 00:45 Total Hemoglobin 14.7 g/dL (12-16) 05/22/24 00:45 Sodium 140.0 mmol/L (131-143) 05/22/24 00:45 Potassium 3.7 mmol/L (3.5-5.0) 05/22/24 00:45 Glucose 124.0 mg/dL (70-115) H 05/22/24 00:45 Ionized Calcium 1.2 mmol/L (1.1-1.4) 05/22/24 00:45 O2 Delivery Device None 05/22/24 00:45 FiO2 21.0 % 05/22/24 00:45 Oracle Database Architect ID [email or web address] 05/22/24 00:45 Sodium 138 mmol/L (136-145) 05/22/24 00:28 Potassium 3.9 mmol/L (3.5-5.1) 05/22/24 00:28 Chloride 101 mmol/L (98-107) 05/22/24 00:28 Carbon Dioxide 26 mmol/L (22-29) 05/22/24 00:28 Anion Gap 14.9 (5-19) 05/22/24 00:28 BUN 10 mg/dL (6-20) 05/22/24 00:28 Creatinine 0.8 mg/dL (0.5-0.9) 05/22/24 00:28 GFR Calculation 78.3 mL/min (90-130) L 05/22/24 00:28 Glucose 124 mg/dL (65-115) H 05/22/24 00:28 Calculated Osmolality 286 mOsm/kg (285-295) 05/22/24 00:28 Calcium 9.0 mg/dL (8.5-10.5) 05/22/24 00:28 Total Bilirubin 0.3 mg/dL (0.15-1.2) 05/22/24 00:28 AST 19 U/L (0-32) 05/22/24 00:28 ALT 21 U/L (0-33) 05/22/24 00:28 Alkaline Phosphatase 90 U/L (35-105) 05/22/24 00:28 Troponin T Baseline < 6 ng/L (0-10) 05/22/24 00:28 Troponin T 120 Minute 6.00 ng/L (0-10) 05/22/24 02:00 Delta Troponin T [id number] ABS# (0-10) 05/22/24 02:00 Total Protein 7.2 g/dL (6.6-8.7) 05/22/24 00:28 Albumin 4.1 g/dL (3.5-5.2) 05/22/24 00:28 Globulin 3.1 g/dL (1.3-4.6) 05/22/24 00:28 All radiology interpretation(s) finalized by discharge Discharge Plan Discharge Patient Disposition: Home Clinical Impression: Non-cardiac chest pain Condition: Stable Prescriptions: No Action ibuprofen 800 mg tablet 800 mg PO Q6H zolpidem 5 mg tablet, sublingual sublingual albuterol sulfate [Ventolin HFA] 90 mcg/actuation HFA aerosol inhaler 1 inh inhalation QID PRN (Reason: shortness of breath or wheezing) Qty: 8.5 3RF cholecalciferol (vitamin D3) 1,250 mcg (50,000 unit) capsule 50,000 unit PO ONCE 30 Days Qty: 2 5RF Rx Instructions: Once capsule on the and 16th of each month. duloxetine 30 mg capsule,delayed release(DR/EC) 30 mg PO DAILY 30 Days Qty: 30 3RF lisinopril 10 mg tablet 10 mg PO DAILY 30 Days Qty: 30 3RF montelukast [Singulair] 10 mg tablet 10 mg PO QDAY 30 Days Qty: 30 3RF fexofenadine-pseudoephedrine [Kyung-D 12 Hour] 60-120 mg tablet extended release 12 hr 1 tab PO Q12H PRN (Reason: nasal congestion) Qty: 20 1RF levothyroxine [Euthyrox] 100 mcg tablet 100 mcg PO DAILY 30 Days Qty: 30 3RF prednisone 20 mg tablet 20 mg PO DAILY Qty: 15 0RF Rx Instructions: 60Mg for 4 days 40 Mg for 2 days 20Mg for 2 days Discharge Orders: Discharge ED (Routine); Ordered 05/22/24 Ordered By: Dayanna Waddell Referrals: De Souza,CAR LandryN [Primary Care Provider] - 1-3 days Discharge Diet: Usual diet Discharge Activity: Increase activity as tolerated Patient Instructions: Noncardiac Chest Pain (ED) Activity Restrictions/Additional Instructions: Thank you for choosing [facility] for your healthcare needs today. Please realize this is an emergency room and that we are providing you with a medical screening exam and this may not be complete and all inclusive of all the testing and or work up that you may need to determine your ailment or severity of your illness. You have been screened and evaluated and felt safe for discharge. Health conditions do change or evolve sometimes and as such it is important that you follow up with your Primary Doctor to be re checked, 3-5 days is a general good time frame for follow up. You are always welcome to return to the ED for re assessment if your symptoms are worsening or you have new concerns Coding Level of Care Code ED [employer] for Kimberley Moreira
== END 2024-05-22 02:57 | disposition home or self-care (01) ==
PROVIDERS: Emergency Provider Emergency Medicine; PCP Nurse Practitioner Family
DX: R07.89 Other chest pain (principal); F17.210 Nicotine dependence, cigarettes, uncomplicated
CPT/HCPCS: 36600; 71045; 80051; 80053; 82330; 82805; 84484; 85025; 93005; 99285

== ENCOUNTER 2024-05-27 00:17 | Emergency (ER) | payer MEDICAID, SELFPAY ==
[2024-05-27 00:18] VITALS: BP 183/116; PULSE 95; RESP 16; TEMP 36.6; O2SAT 96; BMI 35.9
[2024-05-27 00:30] VITALS: BP 154/110; PULSE 100; RESP 17; O2SAT 96
[2024-05-27 01:00] VITALS: BP 168/116; PULSE 108; RESP 18; O2SAT 99
--- NOTE | 2024-05-27 01:12 | W.ED.GENADLT ---
HPI - General Adult General: Chief complaint: General Medical Stated complaint: anxiety Time Seen by Provider: 05/27/24 00:19 History of Present Illness: Patient arrives from home from the ambulance department. Patient says she is having anxiety. She has a weird taste in her mouth, felt a burning sensation over her whole body and started shaking. She pulled over alongside the road called EMS. EMS gave her 4 mg Zofran en route for nausea which is feeling better. Patient reports this morning was the first time and to her taking her Lexapro and her BuSpar and omeprazole. The symptoms have resolved by the time the patient arrived here but patient is still feels like her mouth is dry and she is still feels like she is shaking. Review of Systems General: Reports: 10 or more systems reviewed and unremarkable except in HPI and below PFSH ED PFSH: Medical History Lesion of labia Menorrhagia with regular cycle Anxiety and depression Environmental and seasonal allergies Myalgia of muscle of neck Adult onset hypothyroidism Vitamin D insufficiency Surgical History Hx of dilation and curettage of uterus 1997,1999 Hx of cholecystectomy 12/2012 Hx of tubal ligation 2001 Family History Other Cancer Diabetes Hypertension Social History Smoking and tobacco/nicotine status: unknown if used tobacco/nicotine Alcohol intake: unknown Substance/Drug Use: unknown Marital status: Physical Exam Const: COMMON NORMALS: no acute distress, average body habitus, patient oriented x3, no limitations, healthy appearing, alert and well nourished HENMT: COMMON NORMALS: normocephalic, atraumatic, hearing grossly normal bilaterally, external ears normal, Normal external nose present and moist oral mucous membranes HEAD & SCALP: normocephalic and atraumatic NOSE: Normal external nose present EXTERNAL EAR: Yes external ears normal Eye: COMMON NORMALS: Equal, round and reactive pupils present, EOMs intact bilaterally, conjunctivae normal and no scleral icterus CONJUNCTIVA: Yes conjunctivae normal PUPIL: Yes Equal, round and reactive pupils present Neck/C-Spine: COMMON NORMALS: full ROM, no lymphadenopathy, supple, no meningeal signs, no JVD and Thyroid normal THYROID: Thyroid normal Chest: COMMONS NORMALS: normal inspection of the chest and normal palpation of entire chest wall Resp: COMMON NORMALS: normal respiratory effort, No retractions, No use of accessory muscles and clear to auscultation bilaterally AUSCULTATION: clear to auscultation bilaterally Cardio: COMMON NORMALS: no JVD, regular rate, regular rhythm, S1 normal heart sound present, S2 normal heart sound present, No gallops present (Cardio), No clicks present (Cardio), No murmurs present (Cardio) and No rub (Cardio) RATE: regular rate RHYTHM: regular rhythm HEART SOUNDS: S1 normal heart sound present and S2 normal heart sound present GI: COMMON NORMALS: Normal to inspection, nondistended, normoactive bowel sounds present, Soft to palpation, non-tender, No hepatosplenomegaly present and no masses PALPATION: Yes Soft to palpation and Yes No hepatosplenomegaly present Neuro: COMMON NORMALS: patient oriented x3 SENSORIUM/ORIENTATION: Yes alert MENINGEAL SIGNS: Yes no meningeal signs Course Vital Signs: Vital signs: Vital Signs Temperature 97.9 F 05/27/24 00:18 Pulse Rate 86 05/27/24 03:01 Respiratory Rate 17 05/27/24 03:01 Blood Pressure 136/95 05/27/24 03:01 Pulse Oximetry 96 05/27/24 03:01 Oxygen Delivery Me thod Room Air 05/27/24 01:30 [facility] - General Adult Medical Decision Making She has lab work revealed that was unremarkable, patient was given 1 mg Ativan and 5 mg of metoprolol which calm her anxiety down and lowered her blood pressure. Patient be discharged home to follow-up with her PCP. Medical Records I reviewed the patient's medical records. Lab Data I reviewed the patient's lab results. 05/27/24 01:20 05/27/24 01:20 Laboratory Results WBC 11.62 10^3/uL (3.29-11.43) H 05/27/24 01:20 RBC 4.80 10^6/uL (3.85-5.65) 05/27/24 01:20 Hgb 14.70 g/dL (11.27-16.99) 05/27/24 01:20 Hct 42.2 % (36-47) 05/27/24 01:20 MCV 87.9 fl (85-98) 05/27/24 01:20 MCH 30.6 pg (27-33) 05/27/24 01:20 MCHC 34.8 g/dL (30-55) 05/27/24 01:20 RDW 12.1 % (12.1-15.1) 05/27/24 01:20 Plt Count 236 10^3/cmm (157-399) 05/27/24 01:20 MPV 10.8 fL (7.4-10.4) H 05/27/24 01:20 Neut % (Auto) 71.9 % 05/27/24 01:20 Lymph % (Auto) 20.3 % 05/27/24 01:20 [place] % (Auto) 6.2 % 05/27/24 01:20 Eos % (Auto) 0.7 % 05/27/24 01:20 Baso % (Auto) 0.6 % 05/27/24 01:20 Neut # (Auto) 8.35 10^3/uL (1.8-7.7) H 05/27/24 01:20 Lymph # (Auto) 2.4 10^3/uL (0.8-4.8) 05/27/24 01:20 [place] # (Auto) 0.7 10^3/uL (0.2-0.9) 05/27/24 01:20 Eos # (Auto) 0.1 10^3/uL (0.0-0.8) 05/27/24 01:20 Baso # (Auto) 0.1 10^3/uL (0.0-0.1) 05/27/24 01:20 Nucleated RBC % (auto) 0 % 05/27/24 01:20 Nucleated RBCs # 0.0 /100WBC 05/27/24 01:20 Sodium 134 mmol/L (136-145) L 05/27/24 01:20 Potassium 3.6 mmol/L (3.5-5.1) 05/27/24 01:20 Chloride 99 mmol/L (98-107) 05/27/24 01:20 Carbon Dioxide 23 mmol/L (22-29) 05/27/24 01:20 Anion Gap 15.6 (5-19) 05/27/24 01:20 BUN 7 mg/dL (6-20) 05/27/24 01:20 Creatinine 0.7 mg/dL (0.5-0.9) 05/27/24 01:20 GFR Calculation 91.3 mL/min (90-130) 05/27/24 01:20 Glucose 175 mg/dL (65-115) H 05/27/24 01:20 Calculated Osmolality 280 mOsm/kg (285-295) L 05/27/24 01:20 Calcium 8.9 mg/dL (8.5-10.5) 05/27/24 01:20 Total Bilirubin 0.4 mg/dL (0.15-1.2) 05/27/24 01:20 AST 19 U/L (0-32) 05/27/24 01:20 ALT 27 U/L (0-33) 05/27/24 01:20 Alkaline Phosphatase 93 U/L (35-105) 05/27/24 01:20 Total Protein 7.8 g/dL (6.6-8.7) 05/27/24 01:20 Albumin 4.4 g/dL (3.5-5.2) 05/27/24 01:20 Globulin 3.4 g/dL (1.3-4.6) 05/27/24 01:20 Urine Color Yellow (Yellow) 05/27/24 01:18 Urine Appearance Cloudy (CLEAR) A 05/27/24 01:18 Urine pH 6 (5-7) 05/27/24 01:18 Ur Specific [place] 1.020 (1.005-1.030) 05/27/24 01:18 Urine Protein Neg (Negative) 05/27/24 01:18 Urine Glucose (UA) Norm (Normal) 05/27/24 01:18 Urine Ketones Negative (Negative) 05/27/24 01:18 Urine Blood Neg (Negative) 05/27/24 01:18 Urine Nitrate Negative (Negative) 05/27/24 01:18 Urine Bilirubin 1+ (Negative) H 05/27/24 01:18 Urine Urobilinogen Neg mg/dL (Negative) 05/27/24 01:18 Ur Leukocyte Esterase 1+ (Negative) H 05/27/24 01:18 Urine RBC 5-10 /hpf (0-2) H 05/27/24 01:18 Urine WBC 5-10 /hpf (0-5) H 05/27/24 01:18 Ur Squamous Epith Cells 15-25 /hpf (0-5) H 05/27/24 01:18 Amorphous Sediment Not Reportable 05/27/24 01:18 Urine Bacteria 3+ /hpf (NONE) H 05/27/24 01:18 Urine Mucus 2+ /hpf 05/27/24 01:18 Urine Opiates Screen Negative ng/mL (Negative) 05/27/24 01:18 Ur Barbiturates Screen Negative ng/mL (Negative) 05/27/24 01:18 Ur Phencyclidine Scrn Negative ng/mL (Negative) 05/27/24 01:18 Ur Amphetamines Screen Negative ng/mL (Negative) 05/27/24 01:18 U Benzodiazepines Scrn Negative ng/mL (Negative) 05/27/24 01:18 Urine Cocaine Screen Negative ng/mL (Negative) 05/27/24 01:18 U Marijuana (THC) Screen Negative ng/mL (Negative) 05/27/24 01:18 No radiology studies performed this visit Discharge Plan Discharge Patient Disposition: Home Clinical Impression: Anxiety Condition: Stable Prescriptions: No Action ibuprofen 800 mg tablet 800 mg PO Q6H zolpidem 5 mg tablet, sublingual sublingual omeprazole 40 mg capsule,delayed release(DR/EC) 40 mg PO DAILY Qty: 30 0RF ondansetron 8 mg tablet,disintegrating 8 mg PO Q8H PRN (Reason: nausea and vomiting) 5 Days Qty: 15 0RF albuterol sulfate [Ventolin HFA] 90 mcg/actuation HFA aerosol inhaler 1 inh inhalation QID PRN (Reason: shortness of breath or wheezing) Qty: 8.5 3RF lisinopril 10 mg tablet 10 mg PO DAILY 30 Days Qty: 30 3RF montelukast [Singulair] 10 mg tablet 10 mg PO QDAY 30 Days Qty: 30 3RF fexofenadine-pseudoephedrine [Kyung-D 12 Hour] 60-120 mg tablet extended release 12 hr 1 tab PO Q12H PRN (Reason: nasal congestion) Qty: 20 1RF levothyroxine [Euthyrox] 100 mcg tablet 100 mcg PO DAILY 30 Days Qty: 30 3RF Discharge Orders: Discharge ED (Routine); Ordered 05/27/24 Ordered By: Kev Robertson Referrals: Gris De Souza APN [Primary Care Provider] - 1 week Patient Instructions: Anxiety (ED) Activity Restrictions/Additional Instructions: Your evaluation ER did not reveal any acute cause of your symptoms. It is thought to be anxiety related. He did have high blood pressure in the ER. Please keep a blood pressure log and take it to your next appointment with your family practice doctor. You have just recently started Lexapro and buspirone these are unlikely to be causing your symptoms however if you feel that they are please feel free to stop them and talk to your family practice doctor about changing her medicine. Coding Level of Care Code ED Sample Distributor for Kimberley Moreira
[2024-05-27] MEDS: LORazepam 2 mg/mL INJ 1 mL 1 MG IVP (01:19)
[2024-05-27 01:27] LABS: Basophils # 0.1 10^3/uL (0.0-0.1); Basophils % 0.6 %; Eosinophils # 0.1 10^3/uL (0.0-0.8); Eosinophils % 0.7 %; Hematocrit 42.2 % (36-47); Lymphocytes # 2.4 10^3/uL (0.8-4.8); Lymphocytes % 20.3 %; Mean Corpuscular HGB Conc 34.8 g/dL (30-55); Mean Corpuscular Hemoglobin 30.6 pg (27-33); Mean Corpuscular Volume 87.9 fl (85-98); Mean Platelet Volume 10.8 fL (7.4-10.4); Monocytes # 0.7 10^3/uL (0.2-0.9); Monocytes % 6.2 %; Neutrophils # 8.35 10^3/uL (1.8-7.7); Neutrophils % 71.9 %; Nucleated Red Blood Cells % 0 %; Platelet Count 236 10^3/cmm (157-399); Red Cell Distribution Width 12.1 % (12.1-15.1); White Blood Count 11.62 10^3/uL (3.29-11.43)
[2024-05-27 01:30] VITALS: BP 173/93; PULSE 105; RESP 16; O2SAT 96
[2024-05-27 01:31] LABS: Amphetamines Screen Urine Negative (Negative); Barbiturates Screen Urine Negative (Negative); Benzodiazepines Screen Urine Negative (Negative); Cocaine Screen Urine Negative (Negative); Opiate Screen Urine Negative (Negative); PCP Screen Urine Negative (Negative); THC Screen Urine Negative (Negative)
[2024-05-27 01:35] LABS: Add Urine Culture? No; Add Urine Microscopic? YES; Bacteria Urine 3+ /hpf; Bilirubin Urine 1+ (Negative); Blood Urine Neg (Negative); Glucose Urine UA Norm (Normal); Ketones Urine Negative (Negative); Leukocyte Esterase Urine 1+ (Negative); Mucus Urine 2+ /hpf; Nitrate Urine Negative (Negative); Protein Urine Neg (Negative); Urine Appearance Cloudy (CLEAR); Urine Color Yellow (Yellow); Urobilinogen Urine Neg (Negative); pH Urine 6 (5-7)
[2024-05-27 01:36] LABS: Squamous Epithelial Cell Urine 15-25 /hpf (0-5)
[2024-05-27 01:45] LABS: Alanine Aminotransferase 27 U/L (0-33); Albumin Level 4.4 g/dL (3.5-5.2); Alkaline Phosphatase 93 U/L (35-105); Anion Gap 15.6 (5-19); Aspartate Amino Transferase 19 U/L (0-32); Blood Urea Nitrogen 7 mg/dL (6-20); Calcium 8.9 mg/dL (8.5-10.5); Carbon Dioxide 23 mmol/L (22-29); Chloride 99 mmol/L (98-107); Creatinine Clr Calc Pharmacy 128.4342; Globulin 3.4 g/dL (1.3-4.6); Glomerular Filtration Rate 91.3 mL/min (90-130); Glucose 175 mg/dL (65-115); Osmolality Calculated 280 mOsm/kg (285-295); Potassium 3.6 mmol/L (3.5-5.1); Sodium 134 mmol/L (136-145); Total Bilirubin 0.4 mg/dL (0.15-1.2); Total Protein 7.8 g/dL (6.6-8.7)
[2024-05-27] MEDS: metoprolol tartrate 1 mg/1 mL SDV 5 mL 5 MG IVP (02:03)
[2024-05-27 02:38] VITALS: BP 122/78; PULSE 82; RESP 16; O2SAT 96
[2024-05-27 03:01] VITALS: BP 136/95; PULSE 86; RESP 17; O2SAT 96
== END 2024-05-27 03:22 | disposition home or self-care (01) ==
PROVIDERS: Emergency Provider Emergency Medicine; PCP Nurse Practitioner Family
DX: F41.9 Anxiety disorder, unspecified (principal); E03.9 Hypothyroidism, unspecified; Z79.899 Other long term (current) drug therapy
CPT/HCPCS: 36415; 80053; 80306; 81001; 85025; 96374; 96375; 99284; J2060; J3490

== ENCOUNTER → 2024-06-04 09:56 | Outpatient (BNVA) | payer MEDICAID, SELFPAY | PROVIDERS: PCP Nurse Practitioner Family; Visit Provider Orthopaedic Surgery | DX: M54.2 Cervicalgia (principal) | CPT/HCPCS: 72040; 99213 ==

== ENCOUNTER → 2024-09-08 13:57 | Outpatient (BNVA) | payer MEDICAID, SELFPAY | PROVIDERS: PCP Nurse Practitioner Family; Visit Provider Orthopaedic Surgery | DX: Z01.818 Encounter for other preprocedural examination (principal); M47.22 Other spondylosis with radiculopathy, cervical region; M47.12 Other spondylosis with myelopathy, cervical region | CPT/HCPCS: 72050; 80053; 81003; 85025; 99214 ==

== ENCOUNTER → 2024-09-18 11:16 | Outpatient (BNVA) | payer MEDICAID, SELFPAY | PROVIDERS: PCP Nurse Practitioner Family; Visit Provider Family Medicine | DX: Z01.818 Encounter for other preprocedural examination (principal) | CPT/HCPCS: 80053; 81003; 85025 ==

== ENCOUNTER 2024-10-14 16:22 | Inpatient (IN) | payer MEDICAID, SELFPAY ==
--- OUTSIDE RECORDS SUMMARY | 2024-09-21 09:53 | XMS_ITS | Patient Health Record ---
Author Name Unknown Organization [facility] Address [address] [place] [address] Care Team Providers Care Etl Manager Name Role Phone Ap Gris Primary Care Provider GRIS DE SOUZA Unavailable Unavailable Allergies No Known Allergies Results Component Value Reference Range Notes CBC w\ Auto Diff [id number] Reviewed date:12/30/2023 05:48:59 PM Interpretation: Performing Lab: Notes/Report: Diagnosis Description: Essential (primary) hypertension WBC 7.9 4.5-11.0 X10'3 RBC 4.72 4.00-5.20 X10'6 Hgb 14.1 12.0-16.0 G/DL Hct 43.7 36.0-46.0 % MCV 92.6 80.0-100.0 FL MCH 29.9 27.0-31.0 PG MCHC 32.3 31.0-37.0 G/DL Platelet 239 150-400 X10'3 RDW-SD 43.5 35.0-49.0 FL RDW-CV 12.7 12.2-15.6 % MPV 11.3 9.2-12.0 FL Neutro Auto% 53.5 42.0-75.0 % Lymph Auto% 35.5 20.0-51.0 % [place] Auto% 6.6 1.7-9.3 % Eos Auto% 3.2 .0-6.0 % Baso Auto% 0.8 0.0-1.0 % Imm Gran% .4 .0-.4 % Neutro Abs 4.21 .80-7.70 Absolute Neutrophil Count 4210 Lymph Abs 2.79 .10-4.10 [place] Abs .52 .20-1.00 Eos Abs .25 .00-.40 Baso Abs .06 .00-.10 Imm Gran Abs .03 .00-.10 NRBC# .00 .00-.20 X10'3 NRBC% .00 .00-.20 /100 int act WBC's Comprehensive Metabolic Pane l [id number] Reviewed date:12/30/2023 05:49:19 PM Interpretation: Performing Lab: Notes/Report: Diagnosis Description: Essential (primary) hypertension Glucose Serum 102 71-110 MG/DL Testing perfor med at [facility], [address] [place] [address] [place] [address]. CLIA ID#: [id number] BUN 8 7-21 MG/DL Creat .80 .51-1.17 MG/DL L-zfqezy-b-benzoquinone imine (NAPQI) is a metabolite of acetaminophen, NAPQI concentrations of apparoximately 10 mg/L correlation to toxic levels of acetaminophen demonstrates a greater than or equil to 10% change in results. NAPQI concentrations greater than this may lead to falsely depressed results for patient samples. Use of this assay is not recommended for patients undergoing treatment with phenindione, due to the potential for falsely depressed results. GFR 93.5 Calculation per formed from GFR calculator provided by the [employer]. Glomerular Filtration rate(GRF) is the best overall index of kidney function. Normal GFR varies according to age,sex, body size, and declines with age. The National Kidney Foundation recommends using the CKD-EPI Creatinine Equation(2009) to estimate GFR. BUN/Creat Ratio 10.0 12.0-20.0 % Total Protein 6.4 5.8-8.0 G/DL Albumin 4.1 3.2-4.8 G/DL Globulin 2.3 2.3-3.5 G/DL Alb/Glob 1.8 0.8-2.2 Calcium 8.9 8.7-10.4 MG/DL Sodium 138 136-145 MMOL/L Potassium 4.2 3.5-5.1 MMOL/L Chloride 103 98-107 MMOL/L CO2 29.2 20.0-31.0 MMOL/L Anion Gap 10 5-15 Alk Phos 84 46-116 Bili Total .5 .3-1.2 MG/DL Use of this ass ay is not recommended for patients undergoing treatment with eltrombopag due to the potential for falsely elevated results. AST/SGOT 15 15-37 UNIT/L ALT/SGPT 15 12-78 UNIT/L Osmo Serum,Calculated 285 280-300 MOSM/KG Hemoglobin A1c 24530 Reviewed date:12/30/2023 05:47:54 PM Interpretation: Performing Lab: Notes/Report: Diagnosis Description: Essential (primary) hypertension Hgb A1c 5.1 3.8-6.4 % Interpretation Of Hgb A1c: 4.5-6.2 % nondiabetics. >7.0 % diabetics. EAG 100 Estimated [place] ge Glucose(EAG). Lipid Panel Reflex DLDL 8006 1, 24150 Reviewed date:12/30/2023 05:48:45 PM Interpretation: Performing Lab: Notes/Report: Diagnosis Description: Essential (primary) hypertension Trig 230 Classification Guidelines:Triglycerides Adults: >20yrs Desirable <150 Borderline High 150-199 High 200-499 Very high >=500 Children: Male 0-4 yr 22-99 5-9 yr 30-101 10-14 yr 32-125 15-19 yr 37-148 Children: Female 0-4 yr 34-112 5-9 yr 32-105 10-14 yr 37-131 15-19 yr 39-132 Chol 191 <=200 MG/DL HDL 33 39-96 MG/DL Reference Ranges:HDL Male: 5-9y 38-75 10-14y 37-74 15-19y 30-63 >=20y 40-59 Female: 5-9y 36-73 10-14y 37-70 15-19y 35-74 >=20y 40-59 CH/HDL 5.7 0.0-4.9 RATIO LDL 111 0-130 MG/DL LDL result is i naccurate , if Trig is >400 mg/dl. See DLDL result. Thyroid Stimulating Hormone (TSH) 40320 Reviewed date:12/30/2023 05:48:22 PM Interpretation: Performing Lab: Notes/Report: Diagnosis Description: Essential (primary) hypertension TSH 1.604 .358-3.740 MlU/ML Shoulder Min 3V Left-[id number] Reviewed date:01/03/2024 05:15:28 PM Interpretation: Performing Lab: Notes/Report: Thyroid Stimulating Hormone (TSH) 52851 Reviewed date:07/21/2024 09:03:10 AM Interpretation: Performing Lab: Notes/Report: Diagnosis Description: Hypothyroidism, unspecified TSH 2.735 .358-3.740 MlU/ML Lipid Panel Reflex DLDL 8006 1, 81135 Reviewed date:07/21/2024 09:02:26 AM Interpretation: Performing Lab: Notes/Report: Diagnosis Description: Hyperlipidemia, unspecified Trig 360 Classification Guidelines:Triglycerides Adults: >20yrs Desirable <150 Borderline High 150-199 High 200-499 Very high >=500 Children: Male 0-4 yr 22-99 5-9 yr 30-101 10-14 yr 32-125 15-19 yr 37-148 Children: Female 0-4 yr 34-112 5-9 yr 32-105 10-14 yr 37-131 15-19 yr 39-132 Chol 183 <=200 MG/DL HDL 36 39-96 MG/DL Reference Ranges:HDL Male: 5-9y 38-75 10-14y 37-74 15-19y 30-63 >=20y 40-59 Female: 5-9y 36-73 10-14y 37-70 15-19y 35-74 >=20y 40-59 CH/HDL 5.1 0.0-4.9 RATIO LDL 75 0-130 MG/DL LDL result is i naccurate , if Trig is >400 mg/dl. See DLDL result. Comprehensive Metabolic Pane l [id number] Reviewed date:07/21/2024 09:03:26 AM Interpretation: Performing Lab: Notes/Report: Diagnosis Description: Essential (primary) hypertension Glucose Serum 94 71-110 MG/DL Testing perfor med at [facility], [address] [place] [address] [place] [address]. CLIA ID#: [id number] BUN 9 7-21 MG/DL Creat .91 .51-1.17 MG/DL Z-yjwdco-l-benzoquinone imine (NAPQI) is a metabolite of acetaminophen, NAPQI concentrations of apparoximately 10 mg/L correlation to toxic levels of acetaminophen demonstrates a greater than or equil to 10% change in results. NAPQI concentrations greater than this may lead to falsely depressed results for patient samples. Use of this assay is not recommended for patients undergoing treatment with phenindione, due to the potential for falsely depressed results. GFR 80.2 Calculation per formed from GFR calculator provided by the National [employer]. Glomerular Filtration rate(GRF) is the best overall index of kidney function. Normal GFR varies according to age,sex, body size, and declines with age. The National Kidney Foundation recommends using the CKD-EPI Creatinine Equation(2020) to estimate GFR. BUN/Creat Ratio 9.9 12.0-20.0 % Total Protein 6.5 5.8-8.0 G/DL Albumin 4.2 3.2-4.8 G/DL Globulin 2.3 2.3-3.5 G/DL Alb/Glob 1.8 0.8-2.2 Calcium 9.3 8.7-10.4 MG/DL Sodium 141 136-145 MMOL/L Potassium 4.4 3.5-5.1 MMOL/L Chloride 104 98-107 MMOL/L CO2 28.0 20.0-31.0 MMOL/L Anion Gap 13 5-15 Alk Phos 89 46-116 Bili Total .4 .3-1.2 MG/DL Use of this ass ay is not recommended for patients undergoing treatment with eltrombopag due to the potential for falsely elevated results. AST/SGOT 14 15-37 UNIT/L ALT/SGPT 18 12-78 UNIT/L Osmo Serum,Calculated 290 280-300 MOSM/KG CBC w\ Auto Diff [id number] Reviewed date:07/21/2024 09:05:06 AM Interpretation: Performing Lab: Notes/Report: Diagnosis Description: Essential (primary) hypertension WBC 7.4 4.5-11.0 X10'3 RBC 4.64 4.00-5.20 X10'6 Hgb 14.1 12.0-16.0 G/DL Hct 42.3 36.0-46.0 % MCV 91.2 80.0-100.0 FL MCH 30.4 27.0-31.0 PG MCHC 33.3 31.0-37.0 G/DL Platelet 219 150-400 X10'3 RDW-SD 44.8 35.0-49.0 FL RDW-CV 13.4 12.2-15.6 % MPV 11.3 9.2-12.0 FL Neutro Auto% 53.3 40.0-70.0 % Lymph Auto% 35.3 22.0-44.0 % [place] Auto% 7.4 3.0-7.0 % Eos Auto% 3.2 2.0-4.0 % Baso Auto% 0.5 0.0-1.0 % Imm Gran% .3 .0-.4 % Neutro Abs 3.94 .80-7.70 Absolute Neutrophil Count 3940 Lymph Abs 2.61 .10-4.10 [place] Abs .55 .20-1.00 Eos Abs .24 .00-.40 Baso Abs .04 .00-.20 Imm Gran Abs .02 .00-.10 NRBC# .00 .00-.20 X10'3 NRBC% .00 .00-.20 /100 int act WBC's Reason For Referral Reason Patient requesting r eferral for continued pain to left shoulder. Diagnosis 1 Left shoulder pain, unspecified chronicity (M25.512) Referral Organization [facility] Referring Provider First Name Gris Referring Provider Last Name De Souza Referring Provider Speciality Nurse Ricardo gee Referred Provider Cate Tirado Referred Provider Specialty Orthopedic S urgery General Notes Cate Botello 01/10 02:52:20 PM >Patient was seen on 01/20/2024. Requested records from [facility].Rosmery Susan 02/04/2024 02:20:20 PM >See referral notes. Referral Priority Routine Referral Appointment Date 01/20/2024 Reason Patient needing eval due to abnormal x-rays Diagnosis 1 Degeneration of C5-C 6 intervertebral disc (M50.322) Referral Organization [facility] Referring Provider First Name Gris Referring Provider Last Name De Souza Referring Provider Speciality Nurse Ricardo gee Referred Provider Moshe Caldwell Referred Provider Specialty Orthopedic S urgery General Notes Cate Botello 01/10 02:51:08 PM >Patient was seen by Dr. Caldwell on 01/30/2024. Requested records.Rosmery Susan 02/03/2024 04:19:30 PM >See referral notes. Referral Priority Routine Referral Appointment Date 01/30/2024 Medications Medication SIG (Take, Route, Frequency, Duration) Notes Start Date End Date Status Ondansetron HCl 4 MG 1 tablet Orally q 4 hours prn nausea for 30 days Active Zolpidem Tartrate 5 MG TAKE 1 TABLET BY MOUTH ONCE DAILY AT BEDTIME NEEDED FOR SLEEP for 30 07/06/2024 Active Pantoprazole Sodium 40 MG 1 tablet Orally Once a day in am for 30 days Active Diclofenac Sodium 75 MG 1 tab Orally Twi ce a day pc prn inflammatory pain for 30 07/20/2024 02/15/2025 Active diazePAM 5 MG 1 tab 20 minutes gina or to procedure; may repeat in 30 minutes if needed Orally as directed for 1 days 05/07/2024 Active Kyung-D Allergy & Congestion 60-120 MG TAKE 1 TABLET BY MOUTH EVERY 12 HOURS NEEDED FOR NASAL CONGESTION Oral for 10 Days Not-Taking hydrOXYzine HCl 25 MG 1/2 to 1 tab Orall y twice a day prn anxiety for 30 days 06/25/2024 09/22/2024 Not-Taking Lisinopril 20 MG 1 tablet Orally Once a day for 30 days Active Montelukast Sodium 10 MG TAKE 1 TABLET BY MOUTH ONCE DAILY Oral for 30 Days Active Simvastatin 20 MG TAKE 1 TABLET BY CATHY TH AT BEDTIME Oral for 30 Days Not-Taking Ibuprofen 800 MG 1 tab Orally Three times a day pc prn inflammatory pain for 30 days Active DULoxetine HCl 30 MG 1 capsule Orally Tw ice a day for 30 days Not-Taking Euthyrox 100 MCG Take 1 tablet by cathy th once daily for 30 Active ProAir HFA 108MCG/A INHALE 2 PUFFS BY MO [facility] 4 TIMES DAILY NEEDED for 25 Active Escitalopram Oxalate 20 MG 1 tablet Orally Once a day for 30 days Active Pepcid 40 MG 1 tab Orally Once a day at bedtime for stomach for 30 days Active Immunizations Vaccine Route Administration Date Status Comme nts ([facility]) Fluzone Quadrivalent 6mo & up Unknown 07/28/2024 Administered Social History Tobacco Use: Social History Observation Description Date Details (start date - stop date) Current Smoker NA - NA xTobacco Use/Smoking Question Answer Notes Are you a current smoker How often do you smoke cigarettes? every day How many cigarettes a day do you smoke? 11-20 How soon after you wake up do you smoke your fir st cigarette? within 5 minutes Are you interested in quitting? Ready to quit PHQ-9 Question Answer Notes Little interest or pleasure in doing things More than half the days Feeling down, depressed, or hopeless Several day s Trouble falling or staying a sleep, or sleeping too much Several days Feeling tired or having little energy Several da ys Poor appetite or overeating Several days Feeling bad about yourself, or that you are a failure, or have let yourself or your family down Several days Trouble concentrating on thi ngs, such as reading the newspaper or watching television Several days Moving or speaking so slowly that other people could have noticed. Or the opposite ? being so fidgety or restless that you have been moving around a lot more than usual Not at all Thoughts that you would be b reddy off , or of hurting yourself in some way Several days (Consider Suicide Assessment Risk) Total Score 9 Interpretation Mild Depression Problems Problem Type SNOMED Code ICD Code Onset Dates Problem Status W/U Status Risk Notes Problem 78468596 Nicotine dependence, cigarettes, uncomplicated (F17.210) Active confirmed Problem Claustrophobia (96218489) Claustrophobia (F40.240) Active confirmed Problem Anxiety (61936637) Anxiety (F41.9) Active confi rmed Problem Insomnia (749605482) Insomnia (G47.00) Active confirmed Problem Depression (39878973) Depression (F32.9) Active confirmed Problem Hypothyroid (58670705) Hypothyroid (E03.9) Active confirmed Problem Osteoarthritis (301598773) Osteoarthritis (M19.90) Active confirmed Problem Hypertension (03247478) Hypertension (I10) Active confirmed Problem Hyperlipidemia (32405238) Hyperlipidemia (E78.5) Active confirmed Problem Gastroesophageal reflux disease (851887032) GERD (gastroesophageal reflux disease) (K21.9) Active confirmed Problem Degeneration of cervical intervertebral disc (93139540) 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) Active confirmed Vital Signs Heart Rate 74 /min 08/21/2024 Temperature 96.8 degrees Fahrenheit 08/21/2024 Respiratory Rate 18 /min 08/21/2024 Blood pressure diastolic 80 mm Hg 08/21/2024 Oximetry 96 % 08/21/2024 Height-cm 170.18 cm 08/21/2024 Weight-kg 98.43 kg 08/21/2024 Height 67 in 08/21/2024 Blood pressure systolic 128 mm Hg 08/21/2024 Weight 217 lbs 08/21/2024 BMI 33.98 kg/m2 08/21/2024 Encounters Encounter Location Date Provider Diagnosis [address] [address] 11/28/2023 [facility] Depression F32.9 ; Anxiety F41.9 ; GERD (gastroesophageal reflux disease) K21.9 ; Insomnia G47.00 and Encounter for screening for depression Z13.[address] [address] 12/27/2023 [facility] Left shoulder pain, unspecified chronicity M25.512 ; Muscle spasm M62.838 ; Hypertension I10 ; Osteoarthritis M19.90 ; GERD (gastroesophageal reflux disease) K21.9 ; Insomnia G47.00 ; Bronchitis J40 ; Lipid screening Z13.220 and Nicotine dependence, cigarettes, uncomplicated F17.[address] [address] 03/31/[address] [address] 05/07/2024 [facility] Left shoulder pain, unspecified chronicity M25.512 ; Hypertension I10 ; Claustrophobia F40.240 ; Neck pain M54.2 and Degeneration of C5-C6 intervertebral disc M50.[address] [address] 05/25/2024 [facility] Hypertension I10 ; G ERD (gastroesophageal reflux disease) K21.9 ; Depression F32.9 and Anxiety F41.[address] [address] 06/25/2024 [facility] Hypertension I10 ; Anxiety F41.9 ; Neck pain M54.2 ; Pharyngitis J02.9 and Thrush B37.[address] [address] 07/20/2024 [facility] Degeneration of C5-C 6 intervertebral disc M50.322 ; Osteoarthritis M19.90 ; Neck pain M54.2 ; Nausea R11.0 ; Hypertension I10 ; Hyperlipidemia E78.5 and Hypothyroid E03.9 [facility] [place] [facility] [address] [place] [address] 08/21/2024 [facility] Colon cancer screeni ng Z12.11 ; Degeneration of C5-C6 intervertebral disc M50.322 ; Neck pain M54.2 ; Osteoarthritis M19.90 and Muscle spasm M62.838 [facility] [address] [place] [address] 12/27/2023 [facility] [place] [address] [place] [address] 12/30/2023 [facility] Left shoulder pain, unspecified chronicity M25.512 [facility] [place] [address] [place] [address] 12/31/2023 [facility] Neck pain M54.2 [facility] [address] [place] [address] 01/01/2024 [facility] [place] [address] [place] [address] 01/02/2024 [facility] Degeneration of C5-C 6 intervertebral disc M50.322 [facility] [place] [facility] [address] [place] [address] 01/03/2024 [facility] [place] [address] [place] [address] 01/21/2024 [facility] Degeneration of C5-C 6 intervertebral disc M50.322 [facility] [place] [address] [place] [address] 07/14/2024 [facility] [place] [address] [place] [address] 07/31/2024 [facility] Dental disease K08.9 [facility] [place] [facility] [address] [place] [address] 08/18/2024 [facility] Screening mammogram, encounter for Z12.31 [facility] [place] [address] [place] [address] 09/04/2024 [facility] Assessments Encounter Date Diagnosis (ICD Code) Assessment Notes Treat ment Notes Treatment Clinical Notes 11/28/2023 Anxiety (ICD-10 - F41.9) 11/28/2023 Depression (ICD-10 - F32.9) cymbalta bid 12/27/2023 Muscle spasm (ICD-10 - M62.838) flexeril 12/27/2023 Left shoulder pain, unspecified chronicity (ICD-10 - M25.512) tramadol x ray 12/30/2023 Left shoulder pain, unspecified chronicity (ICD-10 - M25.512) 12/31/2023 Neck pain (ICD-10 - M54.2) 01/02/2024 Degeneration of C5-C 6 intervertebral disc (ICD-10 - M50.322) refer to neuro 01/21/2024 Degeneration of C5-C 6 intervertebral disc (ICD-10 - M50.322) 05/07/2024 Hypertension (ICD-10 - I10) lisinopril 20 mgmonitor bp 05/07/2024 Left shoulder pain, unspecified chronicity (ICD-10 - M25.512) 05/25/2024 Hypertension (ICD-10 - I10) lisinopril; monitor bp 05/25/2024 GERD (gastroesophageal reflux disease) (ICD-10 - K21.9) pepcid 06/25/2024 Anxiety (ICD-10 - F41.9) hydroxyzine 06/25/2024 Hypertension (ICD-10 - I10) lisinopril;monito r bp 07/20/2024 Osteoarthritis (ICD-10 - M19.90) diflofenac 07/20/2024 Degeneration of C5-C 6 intervertebral disc (ICD-10 - M50.322) neuro as plannned 07/31/2024 Dental disease (ICD-10 - K08.9) 08/18/2024 Screening mammogram, encounter for (ICD-10 - Z12.31) 08/21/2024 Colon cancer screening (ICD-10 - Z12.11) cologuard order placed cologuard 08/21/2024 Degeneration of C5-C 6 intervertebral disc (ICD-10 - M50.322) toradol [address] fritz 05/25/2024 Depression (ICD-10 - F32.9) lexapro 08/21/2024 Neck pain (ICD-10 - M54.2) 07/20/2024 Neck pain (ICD-10 - M54.2) tramadol 06/25/2024 Neck pain (ICD-10 - M54.2) 12/27/2023 Hypertension (ICD-10 - I10) conitnue meds monitor cbc cmp 05/07/2024 Claustrophobia (ICD-10 - F40.240) 11/28/2023 GERD (gastroesophageal reflux disease) (ICD-10 - K21.9) pantoprazole pepcid 11/28/2023 Insomnia (ICD-10 - G47.00) zolpidem 12/27/2023 Osteoarthritis (ICD-10 - M19.90) depomedrol/decadr on im ibuprofen 05/07/2024 Neck pain (ICD-10 - M54.2) 06/25/2024 Pharyngitis (ICD-10 - J02.9) z kenji; medrol dose pack 07/20/2024 Nausea (ICD-10 - R11.0) zofran 05/25/2024 Anxiety (ICD-10 - F41.9) buspar 08/21/2024 Osteoarthritis (ICD-10 - M19.90) depomedrol/decadr on im; diclofenac 06/25/2024 Thrush (ICD-10 - B37.0) diflucan 07/20/2024 Hypertension (ICD-10 - I10) continue meds; monitor bp; cbc cmp 08/21/2024 Muscle spasm (ICD-10 - M62.838) 12/27/2023 GERD (gastroesophageal reflux disease) (ICD-10 - K21.9) pantoprazole pepcid 05/07/2024 Degeneration of C5-C 6 intervertebral disc (ICD-10 - M50.322) 11/28/2023 Encounter for screening for depression (ICD-10 - Z13.31) 07/20/2024 Hyperlipidemia (ICD-10 - E78.5) lipids 12/27/2023 Insomnia (ICD-10 - G47.00) zolpidem 07/20/2024 Hypothyroid (ICD-10 - E03.9) tsh; conitnue meds 12/27/2023 Bronchitis (ICD-10 - J40) z kenji 12/27/2023 Lipid screening (ICD-10 - Z13.220) lipid screen 12/27/2023 Nicotine dependence, cigarettes, uncomplicated (ICD-10 - F17.210) 11/28/2023 Other Questions asked and answered; discharged to home. 12/27/2023 Other Questions asked and answered; discharged to home. Venipuncture: Performed by: Rogers PHELAN Attempts: x1 Location: RAC Needle gauge: 21G Patient tolerated well. 05/07/2024 Other Questions asked and answered; discharged to home. 05/25/2024 Other Questions asked and answered; discharged to home. 06/25/2024 Other Questions asked and answered; discharged to home. 07/20/2024 Other Questions asked and answered; discharged to home. Venipuncture: Performed by: Rogers PHELAN Attempts: x1 Location: RAC Needle gauge: 21g Patient tolerated well. 08/21/2024 Other Questions asked and answered; discharged to home. Plan Of Treatment Pending Test Test Name Order Date Cervical Spine AP/Lat 2-3 [id number] Cologuard 08/21/2024 Mammogram Screening Digital Breast Tomos ynthesis, bilateral - 09882 08/18/2024 Insurance Providers Payer Name Payer Address Payer Phone Subscriber Number Group Number Insured Name Patient Relationship to Insured Coverage Start Date Coverage End Date [place] [address] [place] [address] [phone] [id number] Maria G Kyle Self - patient is the insured Medications Administered Medication Instructions Date of Administration Dosage Notes DEPO-Medrol 12/27/2023 [place] [address]-298 3-01 pt tolerated well/instructed to wait 20 min DEPO-Medrol 08/21/2024 [place] [address]-558 3-01 pt tolerated well/instructed to wait 20 min dexAMETHasone 12/27/2023 4 [place] [address]-3 423-00 pt tolerated well/instructed to wait 20 min dexAMETHasone 08/21/2024 [place] [address]-1 423-00 pt tolerated well/instructed to wait 20 min Ketorolac Tromethamine 08/21/2024 [address] [place] [address]-36 pt tolerated well/instructed to wait 20 min Medical (General) History Surgical History Surgery Date(Month/Year) cholecystectomy tubal ligation Hospitalization History Reason Date(Month/Year) see surgical history childbirth
--- OUTSIDE RECORDS SUMMARY | 2024-09-21 09:53 | XMS_ITS ---
Author Name Unknown Organization [facility] Address [address] [place] [address] Care Team Providers Care Plating Stripper Name Role Phone Kofi De Souza Primary Care Provider KOFI DE SOUZA Unavailable Unavailable REASON FOR VISIT f/u visit Encounters Encounter Location Date Provider Diagnosis [facility] [address] [address] 08/27/2024 Kofi De Souza Plan Of Treatment No Information Progress Notes * Maria G KYLEDOB:1980 (43 yo F)Acc No.[id number]:08/27/2024 Progress Notes Patient:?Maria G KYLE Provider:Liseth De Souza SILO OPERATOR :1980???Age:43 Y???Sex:Female D ate:08/27/2024 Address:[address] [place] [address] [id number] Subjective: * Chief Complaints: * ???1. F/u visit. * Medical History:? Objective: * Vitals:? Assessment: Plan: * Treatment: Forms: * Billing Information: * Visit Code:? * Procedure Codes:? Care Plan Details* * Electronic signature of Jose De Souza APN on 09/21/2024 at 09:52 AM CRIMINAL JUDGE Sign off status: Pending * Provider:Liseth De Souza SILO OPERATOR Date:?08/27/20 24 Generated for Indra wang/Efren/eTransmitting on:?09/21/2024 09:52 AM CRIMINAL JUDGE
--- OUTSIDE RECORDS SUMMARY | 2024-09-21 09:53 | XMS_ITS ---
Author Name Unknown Organization [facility] Address [address] [place] [address] Care Team Providers Care Cigar Sorter Name Role Phone Kofi De Souza Primary Care Provider KOFI DE SOUZA Unavailable Unavailable REASON FOR VISIT Needs call back from office Encounters Encounter Location Date Provider Diagnosis [address] [address] 09/04/2024 [facility] De Souza Plan Of Treatment No Information Progress Notes * Maria G KYLEDOB:1980 (43 yo F)Acc No.[id number]:09/04/2024 Patient:?Maria G KYLE :1980???Age:43 Y???Sex:Female Address:[address] [place] [address] [address] [place] [address] * true * Date:? Generated for Indra wang/Efren/eTransmitting on:?09/21/2024 09:52 AM REFRIGERATION PLANT OPERATOR
--- OUTSIDE RECORDS SUMMARY | 2024-09-21 09:53 | XMS_ITS ---
Author Name Unknown Organization [facility] Address [address] [place] [address] Care Team Providers Care Manager Machine Name Role Phone Gris De Souza Primary Care Provider [phone] GRIS DE SOUZA Unavailable Unavailable Allergies No Known Allergies REASON FOR VISIT Patient to clinic with complaint of left shoulder pain. Requesting Cologuard order sent it. Mammogram order was sent to [facility]. Patient had flu vaccine on 07/26/2024 at [facility]. Medications Medication SIG (Take, Route, Frequency, Duration) Notes Start Date End Date Status busPIRone HCl 10 MG 1/2 - 1 tablet Orall y Twice a day for 30 days 05/25/2024 08/23/2024 Active Kyung-D Allergy & Congestion 60-120 MG TAKE 1 TABLET BY MOUTH EVERY 12 HOURS NEEDED FOR NASAL CONGESTION Oral for 10 Days Not-Taking hydrOXYzine HCl 25 MG 1/2 to 1 tab Orall y twice a day prn anxiety for 30 days 06/25/2024 09/22/2024 Not-Taking Simvastatin 20 MG TAKE 1 TABLET BY CATHY TH AT BEDTIME Oral for 30 Days Not-Taking DULoxetine HCl 30 MG 1 capsule Orally Tw ice a day for 30 days Not-Taking Zolpidem Tartrate 5 MG TAKE 1 TABLET BY MOUTH ONCE DAILY AT BEDTIME NEEDED FOR SLEEP for 30 07/06/2024 Active Pantoprazole Sodium 40 MG 1 tablet Orally Once a day in am for 30 days Active Euthyrox 100 MCG Take 1 tablet by cathy th once daily for 30 Active Escitalopram Oxalate 20 MG 1 tablet Orally Once a day for 30 days Active Pepcid 40 MG 1 tab Orally Once a day at bedtime for stomach for 30 days Active diazePAM 5 MG 1 tab 20 minutes gina or to procedure; may repeat in 30 minutes if needed Orally as directed for 1 days 05/07/2024 Active Lisinopril 20 MG 1 tablet Orally Once a day for 30 days Active Montelukast Sodium 10 MG TAKE 1 TABLET BY MOUTH ONCE DAILY Oral for 30 Days Active Ibuprofen 800 MG 1 tab Orally Three times a day pc prn inflammatory pain for 30 days Active ProAir HFA 108MCG/A INHALE 2 PUFFS BY MO [facility] 4 TIMES DAILY NEEDED for 25 Active Ondansetron HCl 4 MG 1 tablet Orally q 4 hours prn nausea for 30 days Active Diclofenac Sodium 75 MG 1 tab Orally Twi ce a day pc prn inflammatory pain for 30 07/20/2024 02/15/2025 Active Social History Tobacco Use: Social History Observation Description Date Details (start date - stop date) Current Smoker NA - NA xTobacco Use/Smoking Question Answer Notes Are you a current smoker How often do you smoke cigarettes? every day How many cigarettes a day do you smoke? - How soon after you wake up do you smoke your fir st cigarette? within 5 minutes Are you interested in quitting? Ready to quit Vital Signs Temperature 96.8 degrees Fahrenheit 08/21/20 24 Blood pressure systolic 128 mm Hg 08/21/20 24 Blood pressure diastolic 80 mm Hg 024 Heart Rate 74 /min 08/21/2024 Respiratory Rate 18 /min 08/21/2024 Height 67 in 08/21/2024 Weight 217 lbs 08/21/2024 BMI 33.98 kg/m2 08/21/2024 Oximetry 96 % 08/21/2024 Height-cm 170.18 cm 08/21/2024 Weight-kg 98.43 kg 08/21/2024 Encounters Encounter Location Date Provider Diagnosis [facility] Office [address] [address] 08/21/2024 Gris De Souza Colon cancer screeni ng Z12.11 ; Degeneration of C5-C6 intervertebral disc M50.322 ; Neck pain M54.2 ; Osteoarthritis M19.90 and Muscle spasm M62.838 Assessments Encounter Date Diagnosis (ICD Code) Assessment Notes Treat ment Notes Treatment Clinical Notes 08/21/2024 Colon cancer screening (ICD-10 - Z12.11) cologericka order placed cologuard 08/21/2024 Degeneration of C5-C 6 intervertebral disc (ICD-10 - M50.322) toradol [address] fritz 08/21/2024 Neck pain (ICD-10 - M54.2) 08/21/2024 Osteoarthritis (ICD-10 - M19.90) depomedrol/decadr on im; diclofenac 08/21/2024 Muscle spasm (ICD-10 - M62.838) 08/21/2024 Other Questions asked and answered; discharged to home. Plan Of Treatment Treatment Notes Assessment Notes Colon cancer screening cologuard order p laced Degeneration of C5-C6 intervertebral dis c toradol [address] fritz Osteoarthritis depomedrol/decadron im; diclofenac Other Questions asked and answered; discharged to home. Pending Test Test Name Order Date Cologuard 08/21/2024 Next Appt Details Follow Up: 3 Months, Reason: recheck Medications Administered Medication Instructions Date of Administration Dosage Notes dexAMETHasone 08/21/2024 4 mg [facility] [id number] [id number] pt tolerated well/instructed to wait 20 min DEPO-Medrol 08/21/2024 40 mg [facility] [id number] 3-01 pt tolerated well/instructed to wait 20 min Ketorolac Tromethamine 08/21/2024 60 mg [facility] [id number] pt tolerated well/instructed to wait 20 min Progress Notes * Maria G SHABAZZDOB:1980 (43 yo F)Acc No.[id number]:08/21/2024 Progress Notes Patient:?Maria G SHABAZZ Provider:?Gris De Souza APRN :1980???Age:43 Y???Sex:Female D ate:08/21/2024 Address:[address] [place], [place] [id number] Check In:02:04 PM CSTCheck 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 Requesting Cologuard order sent it. Mammogram order was sent to [facility]. Patient had flu vaccine on 07/26/2024 at [facility]. * HPI: ???Provider Note:? patient is an alert 43 year old female known to practice and here for recheck? and medications; discussed with tulio chakraborty imaging and diagnosis; copies of imaging reports to patient; immanuel to complain left shoulder pain; discussed with patient thought to be coming from neck abnormality; has alread seen dr ness? ? fritz;? ?[facility] for cervical radiculopathy; neck pain; left shoulder pain as well as muscle spasms cervical radiculopathy; osteoarthritis; inflammation discussed with patient; strongly suggest she take the diclofenac daily; as directed; with food; osteophytes; will administer depomedrol/decadron im as well as toradol 60 mg im cologuard ordered for colon cancer screening mammogram order placed for screening mammogram; breast cancer screening previously sent. * ROS:?General - Multi System:?Musculoskeletal?REPORTS left shoulder pain?.? * Medical History:? * [employer] History:?Date of Last Period?LMP 12/12/2023.? * OB History:?Total living children?3.?Total pregnancies?3.? * Surgical History:?cholecyste ctomy tubal ligation * Hospitalization/Major Diagno stic Procedure:?childbirth see surgical history * Family History:?Non-Contribu tory.? * Social History:?Tobacco Use:?xTobacco Use/Smoking?Are you a?current smoker ?How often do you smoke cigarettes??every day ?How many cigarettes a day do you smoke??11-20 ?How soon after you wake up do you smoke your first cigarette??within 5 minutes ?Are you interested in quitting??Ready to quit ???Depression screening screen completed 11/28/2023 score 9. * Medications:?TakingOndansetr on HCl 4 MG Tablet 1 tablet Orally q 4 hours prn nausea Diclofenac Sodium 75 MG Tablet Delayed Release 1 tab Orally Twice a day pc prn inflammatory pain , stop date 02/15/2025Lisinopril 20 MG Tablet 1 tablet Orally Once a day diazePAM 5 MG Tablet 1 tab 20 minutes prior to procedure; may repeat in 30 minutes if needed Orally as directed Ibuprofen 800 MG Tablet 1 tab Orally Three times a day pc prn inflammatory pain Montelukast Sodium 10 MG Tablet TAKE 1 TABLET BY MOUTH ONCE DAILY Oral ProAir HFA 108MCG/A INHALE 2 PUFFS BY MOUTH 4 TIMES DAILY NEEDED Euthyrox 100 MCG Tablet Take 1 tablet by mouth once daily Pepcid 40 MG Tablet 1 tab Orally Once a day at bedtime for stomach Escitalopram Oxalate 20 MG Tablet 1 tablet Orally Once a day Pantoprazole Sodium 40 MG Tablet Delayed Release 1 tablet Orally Once a day in am Zolpidem Tartrate 5 MG Tablet TAKE 1 TABLET BY MOUTH ONCE DAILY AT BEDTIME NEEDED FOR SLEEP busPIRone HCl 10 MG Tablet 1/2 - 1 tablet Orally Twice a day , stop date 08/23/2024Taking Ondansetron HCl 4 MG Tablet 1 tablet Orally q 4 hours prn nausea Taking Diclofenac Sodium 75 MG Tablet Delayed Release 1 tab Orally Twice a day pc prn inflammatory pain , stop date 02/15/2025Taking Lisinopril 20 MG Tablet 1 tablet Orally Once a day Taking diazePAM 5 MG Tablet 1 tab 20 minutes prior to procedure; may repeat in 30 minutes if needed Orally as directed Taking Ibuprofen 800 MG Tablet 1 tab Orally Three times a day pc prn inflammatory pain Taking Montelukast Sodium 10 MG Tablet TAKE 1 TABLET BY MOUTH ONCE DAILY Oral Taking ProAir HFA 108MCG/A INHALE 2 PUFFS BY MOUTH 4 TIMES DAILY NEEDED Taking Euthyrox 100 MCG Tablet Take 1 tablet by mouth once daily Taking Pepcid 40 MG Tablet 1 tab Orally Once a day at bedtime for stomach Taking Escitalopram Oxalate 20 MG Tablet 1 tablet Orally Once a day Taking Pantoprazole Sodium 40 MG Tablet Delayed Release 1 tablet Orally Once a day in am Taking Zolpidem Tartrate 5 MG Tablet TAKE 1 TABLET BY MOUTH ONCE DAILY AT BEDTIME NEEDED FOR SLEEP Taking busPIRone HCl 10 MG Tablet 1/2 - 1 tablet Orally Twice a day , stop date 08/23/2024Not-TakinghydrOXYzine HCl 25 MG Tablet 1/2 to 1 tab Orally twice a day prn anxiety , stop date 09/22/2024llegra-D Allergy & Congestion 60-120 MG Tablet Extended Release 12 Hour TAKE 1 TABLET BY MOUTH EVERY 12 HOURS NEEDED FOR NASAL CONGESTION Oral DULoxetine HCl 30 MG Capsule Delayed Release Particles 1 capsule Orally Twice a day Simvastatin 20 MG Tablet TAKE 1 TABLET BY MOUTH AT BEDTIME Oral Medication List reviewed and reconciled with the patientNot-Taking hydrOXYzine HCl 25 MG Tablet 1/2 to 1 tab Orally twice a day prn anxiety , stop date 09/22/2024Not-Taking Kyung-D Allergy & Congestion 60-120 MG Tablet Extended Release 12 Hour TAKE 1 TABLET BY MOUTH EVERY 12 HOURS NEEDED FOR NASAL CONGESTION Oral Not-Taking DULoxetine HCl 30 MG Capsule Delayed Release Particles 1 capsule Orally Twice a day Not-Taking Simvastatin 20 MG Tablet TAKE 1 TABLET BY MOUTH AT BEDTIME Oral Medication List reviewed and reconciled with the patient * Allergies:?N.K.D.A.no[Allerg ies Verified] Objective: * Vitals:?Ht: 67 in, Wt:217lbs , Wt-k.43 kg, BMI:33.98Index, Temp:96.8F, BP:128/80mm Hg, HR:74/min, RR:18/min, Oxygen sat %:96%, O2 Source: RA, Pain scale: 3 1-10, Ht-cm: 170.18 cm. * Examination: ???General Examination: ?GENERAL APPEARANCE:?alert, well hydrated, in no distress, converses well.?HEAD:?normocephalic, atraumatic.?EYES:?PERRL; normal conjunctiva.?EARS:?....?NECK/THYROID:?no jugular venous distention; pain with rom somewhat.?SKIN:?warm and dry.?HEART:?Regular rate and rhythm, S1 S2 normal.?LUNGS:?clear to auscultation bilaterally, no wheezes, rales, or rhonchi.?EXTREMITIES:?left shoulder pain with any rom.?NEUROLOGIC:?alert and oriented, cerebellar function normal, cognitive exam grossly normal, gait normal.?PSYCH:?alert, oriented, cognitive function intact, cooperative with exam, good eye contact, mood/affect full range, speech clear.? Assessment: * Assessment: 1.?Degeneration of C5-C6 int ervertebral disc - M50.322 (Primary)???2.?Colon cancer screening - Z12.11???3.?Neck pain - M54.2???4.?Osteoarthritis - M19.90???5.?Muscle spasm - M62.838??? Plan: * Treatment: 2.?Colon cancer screening?LAB: Cologuard Notes: cologuard order placed?? Clinical Notes: cologuard?? 3.?Osteoarthritis? Notes: depomedrol/decadron im; diclofenac?? 4.?Others? Notes: Questions asked and answered; discharged to home.?? * Therapeutic Injections:? Dexamethasone Sodium Phosphate : 4 mg (Route: Combination inj. into one route) [facility] by [facility] (Osteoarthritis)??? Depo-Medrol/Methylprednisolone per 40mg : 40 mg (Route: Combination inj. into one route) given by Caet Pounders on right hip (Osteoarthritis)??? KetorolacTrtomethamine/Toradol : 60 mg (Route: Intramuscular) given by Cate Pounders on right hip (Neck pain) * Procedure Codes:?3074F SYST BP LT 130 MM [id number] DIAST BP 80-89 MM [id number] Dexamethasone Sodium [id number] THER/PROPH/DIAG INJ, SC/SYS0093 Injection, methylprednisolone acetate, 1 mg, Units: 40.00 J1885 KetorolacTrtomethamine/Toradol * Preventive Medicine:? ??Screenings:?BREAST CANCER SCREENING:?Date of most recent screening:?Never ?Provider recommendation:?schedule Orders sent to [facility]. ?CERVICAL CANCER SCREENING:?Cancer screening cervical (age 21-64)?[facility] ?Date of the last PAP Smear :?Unsure of date of last pap date ?The last cervical cancer screening:?occurred less than a year ago ?Provider recommendation:?repeat ?COLORECTAL CANCER SCREENING:?Colorectal screening:?has never occurred Has never been done ?Provider recommendation:?schedule Cologuard order sent ?DEPRESSION SCREENING:?The patient denies:?poor appetite, thought of harming someone else, trouble concentrating, weight gain, weight loss, any depressive symptoms at this time ?Suicidal ideation:?has been passively considered ?Homicidal ideation:?has never been expressed/considered ?PHQ inventory:?was completed today, with score of 5-9 ?Date of most recent screening:?11/28/2023 ?VACCINATIONS:?Influenza vaccinations:?occur routinely Had Influenza vaccine at [facility] ?Is patient's pneumococcal vaccine current??N/A * Follow Up:?3 Months (Reason: recheck) * Billing Information: * Visit Code:? 31430 Office Visit, Est Pt., Level 3. * Procedure Codes:? 3074F SYST BP LT 130 MM HG. 3079F DIAST BP 80-89 MM HG. J1100 [place]. [address] THER/PROPH/DIAG INJ, SC/IM. J1010 Injection, methylprednisolone acetate, 1 mg. Units: 40.00. J1885 KetorolacTrtomethamine/Toradol. Care Plan Details* * Sign off status: Completed true * Provider:Liseth De Souza IMPREGNATOR HELPER Date:?08/21/20 24 Generated for Indra wang/Efren/eTransmitting on:?09/21/2024 09:53 AM RACKING TECHNICIAN History and Physical Notes * Examination Category Sub-Category Detail Notes General Examination GENERAL APPEARANCE: alert, w ell hydrated, in no distress, converses well HEAD: normocephalic, atrau matic EYES: PERRL; normal conjun ctiva EARS: ... NECK/THYROID: no jugular venous di stention; pain with rom somewhat HEART: Regular rate and rhy thm, S1 S2 normal LUNGS: clear to auscultatio n bilaterally, no wheezes, rales, or rhonchi NEUROLOGIC: alert and oriented, cerebellar function normal, cognitive exam grossly normal, gait normal SKIN: warm and dry EXTREMITIES: left shoulder pain w ith any rom PSYCH: alert, oriented, cog nitive function intact, cooperative with exam, good eye contact, mood/affect full range, speech clear
[2024-10-14] VITALS (24 sets, daily range): BP systolic 89–193; BP diastolic 68–94; PULSE 69–107; RESP 15–26; TEMP 36.1–36.9; O2SAT 82–99; BMI 34.2
--- NOTE | 2024-10-14 | XR_ITS ---
WS: [id number] XR cervical spine 3V* 33040 REASON FOR EXAM: JAMES PICS FINDINGS: Plate and screw fixation with interbody fusion devices C3-C6. Surgical appliances are intact and in proper position and alignment. XR/XR cervical spine 3V* 62945 IMPRESSION: Anterior cervical fusion as above without abnormality.
[2024-10-14] MEDS: sodium chloride 0.9% 1,000 ML 30 ML IV (10:06)
--- NOTE | 2024-10-14 10:29 | ANES.PREANE2 ---
Pre-Anesthetic Assessment Height/Weight: Height 5 ft 7 in Weight 219 lb Temp Pulse Resp BP Pulse Ox O2 Del Method 97.4 F L 69 18 156/87 99 Room Air 10/14/24 09:39 10/14/24 09:39 10/14/24 09:39 10/14/24 09:39 10/14/24 09:39 10/14/24 09:40 Preop Diagnosis: Cervical radiculopathy; cervical spondylosis with myelopathy Operation Date: 10/14/24 11:15 Proposed Procedures p Anterior Cervical Discectomy & Fusion ACDF w/ Anterior Interbody Fusion w/ Cage w/ Instrumentation w/ Allograft w/ Navigation(Not Applicable) - Moshe Caldwell, DO Was Beta Alon taken within 24 hours: N/A Was Clonidine taken within 24 hours: N/A Last intake: Intake Last Liquid Date 10/13/24 Last Liquid Time 22:30 Last Solid Date 10/13/24 Last Solid Time 21:00 Social Tobacco and No alcohol Exam alert, oriented x 3, clear to auscultation bilaterally and regular rate & rhythm Airway Submandibular: within normal limits Cervical ROM: Other (limited due to pain) Mallampati: Class III Dentition: chipped and full Comments: Comments: Multiple chipped teeth, denies any loose Anesthetic Plan ASA status: 3 Anesthesia: General Other: No prior issues with anesthesia NPO since yesterday History of hypertension on lisinopril. Preop BP 156/87 GERD on Pepcid and Protonix History of TMJ COPD, current everyday smoker Plan for GETA Medications/Allergies Home Medications Medication Instructions Recorded Confirmed Last Taken Type zolpidem 5 mg sublingual tablet 5 mg sublingual DAILY 01/20/24 10/13/24 10/12/24 History (Edluar) escitalopram oxalate 20 mg tablet 20 mg PO DAILY 05/29/24 10/13/24 10/13/24 History ibuprofen 800 mg tablet 800 mg PO Q6H 05/29/24 10/13/24 10/07/24 History levothyroxine 100 mcg tablet 100 mcg PO DAILY 30 days #30 tabs 05/29/24 10/13/24 10/13/24 Rx (Euthyrox) montelukast 10 mg tablet 10 mg PO QDAY 30 days #30 tabs 05/29/24 10/13/24 10/13/24 Rx (Singulair) pantoprazole 40 mg tablet,delayed 40 mg PO DAILY 90 days #90 tabs 06/05/24 10/13/24 10/13/24 Rx release (Protonix) albuterol sulfate 90 mcg/actuation See Rx Instructions .Route 07/06/24 10/13/24 Unknown Rx aerosol inhaler .COMPLEX #18 grams famotidine 40 mg tablet (Pepcid) 40 mg PO DAILY 09/18/24 10/13/24 10/13/24 History lisinopril 10 mg tablet 20 mg PO DAILY 10/13/24 10/13/24 10/13/24 History Allergies Allergy/AdvReac Type Severity Reaction Status Date / Time simvastatin Allergy Intermediate ALGY-Swell Verified 10/14/24 09:36 Lip/Tongue/Throat Current Medications Generic Name Dose Route Start Last Admin Trade Name Freq PRN Reason Stop Dose Admin Sodium Chloride 1,000 mls @ 30 mls/hr 10/14/24 09:30 10/14/24 10:06 Sodium Chloride 0.9% IV 10/15/24 09:29 30 mls/hr .Q24H JIN Administration PFSH Anesthesia Medical History Lesion of labia Menorrhagia with regular cycle Anxiety and depression Environmental and seasonal allergies Myalgia of muscle of neck Adult onset hypothyroidism Vitamin D insufficiency Surgical History Hx of dilation and curettage of uterus 1997,1999 Hx of cholecystectomy 12/2012 Hx of tubal ligation 2001 Family History Other Cancer Diabetes Hypertension Social History Smoking and tobacco/nicotine status: current every day tobacco/nicotine user cigarettes Packs smoked per day: 1 Years cigarettes smoked: 23 [ Other cigarette details: 1ppd currently ] Alcohol intake: unknown Substance/Drug Use: unknown Marital status: Data Anesthesia Cardiac Studies: Sestamibi Stress Test (Cardiology) 12/24/22
--- NOTE | 2024-10-14 11:12 | W.PM.OPSUD ---
Surgery/Procedure H&P Update DATE OF PROCEDURE: October 14, 2024 DATE H&P PERFORMED: 09/18/24 H&P UPDATE INFORMATION: I have reviewed H&P completed within last 30 days, I have examined patient prior to procedure and No changes to prior documentation PREOP DIAGNOSIS: Cervical radiculopathy; cervical spondylosis with myelopathy PLANNED PROCEDURE: Operation Date: 10/14/24 11:15 Proposed Procedures p Anterior Cervical Discectomy & Fusion ACDF w/ Anterior Interbody Fusion w/ Cage w/ Instrumentation w/ Allograft w/ Navigation(Not Applicable) - Moshe Caldwell DO
[2024-10-14] MEDS: ceFAZolin 2,000 mg SDV 2000 MG IVP ×2 (12:14→21:21)
[2024-10-14] MEDS: lidocaine-epi 1% PF 1:200,000 30 mL SDV 10 ML INJECTION (13:20)
--- NOTE | 2024-10-14 14:46 | P.OP_ITS ---
Operative Report Date of procedure: October 14, 2024 Pre-op diagnosis: Cervical spondylosis with myelopathy and cervical radiculopathy Post-op diagnosis: same Procedure done: 1. Anterior diskectomy C4/5 2. Anterior diskectomy C5/6 3. Anterior discectomy C6/7 4. Insertion of cage C4/5 5. Insertion of cage C5/6 6. Insertion of Cage C6/7 7. Instrumentation with anterior plate from C4-C7 8. Use of allograft Surgeon: Moshe Caldwell DO Estimated blood loss (mL): 50 Procedure: 1. Anterior diskectomy C4/5 2. Anterior diskectomy C5/6 3. Anterior discectomy C6/7 4. Insertion of cage C4/5 5. Insertion of cage C5/6 6. Insertion of Cage C6/7 7. Instrumentation with anterior plate from C4-C7 8. Use of allograft The patient was taken to the operating room, where he underwent general endotracheal anesthesia without complications. He was then positioned supine on the operating table, and all areas of impingement were well padded. The arms were carefully padded and tucked at his sides. A roll was placed between the shoulder blades.. An x-ray was done to determine the appropriate level for the skin incision. The entire neck was then sterilely prepped and draped in the usual fashion. Neuromonitoring was attached prior to prepping. A transverse skin incision was made and carried down to the platysma muscle. This was then split in line with its fibers. Blunt dissection was carried down medial to the carotid sheath and lateral to the trachea and esophagus until the anterior cervical spine was visualized. A needle was placed into a disc and an x-ray was done to determine its location. The longus colli muscles were then elevated bilaterally with the electrocautery unit. Self-retaining retractors were placed deep to the longus colli muscle. Attention was brought to the C4-54 level that was confirmed on x-ray. A caspar pin was placed into the C4 vertebrae and the C5 vertebrae. The disk space was then distracted. The microscope was then brought in. A radical anterior discectomies were performed at C4/5. This included complete removal of the anterior annulus, nucleus, and posterior annulus. The posterior longitudinal ligament was removed as were the posterior osteophytes. Foraminotomies were then accomplished bilaterally. This was done using a high speed cathy, kerrison rongeurs and curretes Once all of this was accomplished, the curved currette was used to check for any residual compression. The central canal was wide open as were the foramen. A high-speed bur was used to remove the cartilaginous endplates above and below the interspace. Bleeding cancellous bone was exposed. The disc space were measured and appropriate size cage were placed sterilely onto the field. Allograft graft was packed into the cages. The cage was then placed and there was good juxtaposition against the bleeding decorticated surfaces and good distraction of each interspace. Attention was brought to the next interspace. The [place] pins were removed. Bone wax was used to prevent any bleeding from occurring at the pin sites. Attention was brought to the C5-6 level that was confirmed on x-ray. A caspar pin was placed into the C5 vertebrae and the C6 vertebrae. The disk space was then distracted. The microscope was then brought in. A radical anterior discectomies were performed at C5/6. This included complete removal of the anterior annulus, nucleus, and posterior annulus. The posterior longitudinal ligament was removed as were the posterior osteophytes. Foraminotomies were then accomplished bilaterally. This was done using a high speed cathy, kerrison rongeurs and curretes Once all of this was accomplished, the curved currette was used to check for any residual compression. The central canal was wide open as were the foramen. A high-speed bur was used to remove the cartilaginous endplates above and below the interspace. Bleeding cancellous bone was exposed. The disc space were measured and appropriate size cage were placed sterilely onto the field. Allograft graft was packed into the cages. The cage was then placed and there was good juxtaposition against the bleeding decorticated surfaces and good distraction of each interspace. Attention was brought to the next interspace. The [place] pins were removed. Bone wax was used to prevent any bleeding from occurring at the pin sites. Attention was brought to the C6-7 level that was confirmed on x-ray. A caspar pin was placed into the C6 vertebrae and the C7 vertebrae. The disk space was then distracted. The microscope was then brought in. A radical anterior discectomies were performed at C6/7. This included complete removal of the anterior annulus, nucleus, and posterior annulus. The posterior longitudinal ligament was removed as were the posterior osteophytes. Foraminotomies were then accomplished bilaterally. This was done using a high speed cathy, kerrison rongeurs and curretes Once all of this was accomplished, the curved currette was used to check for any residual compression. The central canal was wide open as were the foramen. A high-speed bur was used to remove the cartilaginous endplates above and below the interspace. Bleeding cancellous bone was exposed. The disc space were measured and appropriate size cage were placed sterilely onto the field. Allograft graft was packed into the cages. The cage was then placed and there was good juxtaposition against the bleeding decorticated surfaces and good distraction of each interspace. The [place] pins were removed. Bone wax was used to prevent any bleeding from occurring at the pin sites. The appropriate size anterior cervical locking plate was chosen and bent into gentle lordosis. Two screws were then placed into each of the vertebral bodies at C4, C5, C6 and C7. There was excellent purchase. A final x-ray was done confirming good position of the hardware and Cages. The locking screws were then applied, also with excellent purchase. Following a final copious irrigation, there was good hemostasis and no dural leaks. The carotid pulse was strong. The wounds were then closed in layers using 2-0 Vicryl suture for the platysma muscle, 2-0 Vicryl suture for the subcutaneous tissue, and 4-0 monocryl suture in a subcuticular skin closure. Glue was placed followed by application of a sterile dressing. The drain was hooked to bulb suction. A soft collar was applied. The patient was then carefully returned to the supine position on his hospital bed where he was reversed and extubated and taken to the recovery room having tolerated the procedure well.
[2024-10-14] MEDS: ipratropium-albuterol 3 mL Neb INHALATION (15:11)
[2024-10-14 15:57] LABS: Urine Color Yellow (Yellow)
[2024-10-14 15:58] LABS: Add Urine Microscopic? YES; UA Manual Slide Review YES
[2024-10-14 16:03] LABS: RBC Urine 0-4 /hpf (0-2); WBC Urine 0-4 /hpf (0-5)
--- NOTE | 2024-10-14 16:03 | PC.NURSE ---
1505 - Anesthesia at bedside in PACU - Oral airway in place - medications per Anesthesia.
--- NOTE | 2024-10-14 16:05 | PC.NURSE ---
1515 Pt restless, combative - anesthesia at bedside administering medications.
[2024-10-14 16:06] LABS: Amorphous Sediment Urine 4+ /hpf; Bacteria Urine TRACE /hpf; Squamous Epithelial Cell Urine 0-4 /hpf (0-5)
[2024-10-14 16:07] LABS: Add Urine Culture? No; Urine Appearance Turbid (CLEAR)
--- NOTE | 2024-10-14 16:29 | ANE.PACU2 ---
Inpatient post-anesthesia follow up: Airway intact: Yes Vital signs: Temperature 98.1 F Pulse Rate 80 Respiratory Rate 18 Blood Pressure 140/70 Pulse Oximetry 94 Oxygen Delivery Me thod Room Air Oxygen Flow Rate 2 Fraction of Inspir ed Oxygen Hydration adequate: Yes Nausea and vomiting: No Pain level: 1 Mental status: Baseline
[2024-10-14] MEDS: lactated ringers 1,000 ML 90 ML IV (18:22)
[2024-10-14] MEDS: docusate sodium 100 mg Capsule PO (18:22)
[2024-10-14] MEDS: zolpidem 5 mg Tablet PO (21:21)
[2024-10-14] MEDS: lisinopril 20 mg Tablet PO (21:56)
[2024-10-14] MEDS: HYDROcodone-acetaminophen 5-325 mg Tablet PO (23:21)
[2024-10-14] MEDS: ondansetron 2 mg/ML SDV 2 mL 4 MG IVP (23:27)
[2024-10-15] VITALS: BP 137/86; PULSE 98; RESP 17; TEMP 37.2; O2SAT 91
[2024-10-15] MEDS: acetaminophen 325 mg Tablet 650 MG PO ×2 (03:19→08:00)
[2024-10-15 03:49] VITALS: BP 146/82; PULSE 92; RESP 18; TEMP 36.6; O2SAT 91
[2024-10-15] MEDS: ceFAZolin 2,000 mg SDV 2000 MG IVP (03:57)
[2024-10-15 07:54] VITALS: BP 144/72; PULSE 87; RESP 16; TEMP 36.5; O2SAT 92
[2024-10-15] MEDS: docusate sodium 100 mg Capsule PO (07:59)
[2024-10-15] MEDS: famotidine 20 mg Tablet 40 MG PO (07:59)
[2024-10-15] MEDS: lisinopril 10 mg Tablet 20 MG PO (07:59)
[2024-10-15] MEDS: escitalopram 10 mg Tablet 20 MG PO (07:59)
[2024-10-15] MEDS: montelukast sodium 10 mg Tablet PO (08:00)
[2024-10-15] MEDS: levothyroxine 100 mcg Tablet PO (08:00)
[2024-10-15] MEDS: pantoprazole DR 40 mg Tablet PO (08:00)
[2024-10-15 08:38] VITALS: PULSE 86; RESP 16; O2SAT 94
--- NOTE | 2024-10-15 09:48 | PC.NURSE ---
Patient IV removed at this time intact. Patient tolerated well. Reviewed patient discharge with patient and family. Patient verbalized understanding of discharge instructions including follow up appointments and medications and how to take them. Patient ambulated from the floor with a steady gait and with her c-collar in place.
[2024-10-15 10:45] VITALS: BP 140/70; PULSE 80; RESP 18; TEMP 36.7; O2SAT 94
--- NOTE | 2024-10-16 12:20 | PM.DCS ---
Discharge Providers Date of Admission: 10/14/24 16:22 Date of Discharge: October 16, 2024 Attending Provider at Admission: Moshe Caldwell DO Attending Provider at Discharge: Moshe Caldwell DO Primary Care Provider: Gris De Souza APN Reason for Visit Reason for Visit: M54.12 Physical Exam Urinary Catheter Management: Avalos: Cath Placed During This Visit: yes, but has since been removed by the nurse Reason for Continuing Indwelling Catheter: Decision to DC Catheter Urinary Catheter Date of Insertion: 10/14/24 Urinary Catheter Time of Insertion: 12:40 Date Urinary Catheter Removed: 10/15/24 Time Urinary Catheter Discontinued: 05:54 Discharge Data Studies Completed and Pending Completed Studies During Hospitalization Category Date Time Status XR cervical spine 3V* [id number] Routine Exams 10/14/24 00:00 Completed Radiology Impressions Cervical Spine X-Ray 10/14/24 00:00 IMPRESSION: Anterior cervical fusion as above without abnormality. Laboratory Results Urine Color Yellow (Yellow) 10/14/24 14:46 Urine Appearance Turbid (CLEAR) A 10/14/24 14:46 Urine pH Not Reportable 10/14/24 14:46 Ur Specific [place] Not Reportable 10/14/24 14:46 Urine Protein Not Reportable 10/14/24 14:46 Urine Glucose (UA) Not Reportable 10/14/24 14:46 Urine Ketones Not Reportable 10/14/24 14:46 Urine Blood Not Reportable 10/14/24 14:46 Urine Nitrate Not Reportable 10/14/24 14:46 Urine Bilirubin Not Reportable 10/14/24 14:46 Urine Urobilinogen Not Reportable 10/14/24 14:46 Ur Leukocyte Esterase Not Reportable 10/14/24 14:46 Urine RBC 0-4 /hpf (0-2) H 10/14/24 14:46 Urine WBC 0-4 /hpf (0-5) H 10/14/24 14:46 Ur Squamous Epith Cells 0-4 /hpf (0-5) H 10/14/24 14:46 Amorphous Sediment 4+ /hpf 10/14/24 14:46 Urine Bacteria Trace /hpf (NONE) 10/14/24 14:46 Vitals Last Vital Signs Temp 98.1 F 10/15/24 10:45 Pulse 80 10/15/24 10:45 Resp 18 10/15/24 10:45 BP 140/70 10/15/24 10:45 Pulse Ox 94 10/15/24 10:45 O2 Del Method Room Air 10/15/24 08:38 O2 Flow Rate 2 10/15/24 00:00 Discharge Plan Discharge Patient Disposition: Home Prescriptions: Continued Edluar 5 mg tablet, sublingual 5 mg sublingual DAILY famotidine [Pepcid] 40 mg tablet 40 mg PO DAILY escitalopram oxalate 20 mg tablet 20 mg PO DAILY levothyroxine [Euthyrox] 100 mcg tablet 100 mcg PO DAILY 30 Days Qty: 30 3RF montelukast [Singulair] 10 mg tablet 10 mg PO QDAY 30 Days Qty: 30 3RF pantoprazole [Protonix] 40 mg tablet,delayed release (DR/EC) 40 mg PO DAILY 90 Days Qty: 90 1RF albuterol sulfate 90 mcg/actuation HFA aerosol inhaler See Rx Instructions .ROUTE .COMPLEX Qty: 18 1RF Dose Instruction: INHALE 1 PUFF BY MOUTH 4 TIMES DAILY NEEDED FOR SHORTNESS OF BREATH OR WHEEZING Rx Instructions: INHALE 1 PUFF BY MOUTH 4 TIMES DAILY NEEDED FOR SHORTNESS OF BREATH OR WHEEZING lisinopril 10 mg tablet 20 mg PO DAILY Held ibuprofen 800 mg tablet 800 mg PO Q6H Hold Instructions: Resume on 10/16/24. No Action hydrocodone-acetaminophen 5-325 mg tablet 1 - 2 tab PO .Q4-6H 7 Days Qty: 40 0RF Discharge Orders: Discharge Order (Routine); Ordered 10/15/24 Ordered By: Moshe Caldwell Referrals: Moshe Caldwell, DO [Physician] - 10/29/24 2:15 pm Discharge Diet: Advance as tolerated Discharge Activity: Limit activity as instructed Patient Instructions: Hydrocodone/Acetaminophen (By mouth), Acute Wound Care (DC), Anterior Cervical Discectomy (DC), Opioid Safety, Post Anesthesia Care Activity Restrictions/Additional Instructions: Thank you for choosing [facility] for your care! The following is a list of instructions, from your provider, to follow upon your discharge to ensure you have the optimal recovery from your recent injury or surgery. Anterior Cervical Discectomy and Fusion: What to Expect at Home Your Recovery Follow-up care is a león part of your treatment and safety. Be sure to make and go to all appointments, and call your doctor if you are having problems. If you do not already have a follow-up appointment made, call office in the next 1-3 days to make follow up appointment for 2 weeks at [phone]. It is also a good idea to know your test results and keep a list of the medicines you take. You can expect your neck to feel stiff or sore after surgery. This should improve in the weeks after surgery. But it may take 4 to 6 months for you to get better completely. You may have trouble sitting or standing in one position for very long and may need pain medicine in the weeks after your surgery. It may take 4 to 6 weeks to get back to your usual activities, but it may depend on what kind of surgery you had. Your throat will feel sore and it may be difficult to swallow for the first 3 days after your surgery. As long as you can get liquids down without difficulty, this should slowly improve, otherwise call our office or seek medical attention if it becomes increasingly difficult to get anything down including liquids. Avoid hot liquids for first 3-5 days. Soothing foods/liquids such as jello, pudding, and luke warm soups are recommended until swallowing improves. Staying elevated will also help, it's advised you keep propped up at while sleeping to help reduce the swelling. You may use an ice pack directly on your incision or around it on the front of your neck, using a cloth to protect your skin; and a heating pad to the back of your neck as needed. Do not use over the counter anti-inflammatory medications (Ibuprofen, Motrin, Aleve, Advil, etc) Taking these meds after having a fusion can delay fusion rates, we recommend you avoid them for the first 3 months after your surgery[address] Dr. Caldwell may advise you to work with a physical therapist to strengthen the muscles around your neck and back - this will be discussed at your follow - up appointments. The pain or numbness you were having in your arms before surgery should get better or go away completely. This care sheet gives you a general idea about how long it will take for you to recover. But each person recovers at a different pace. Follow the steps below to get better as quickly as possible. How can you care for yourself at home? Activity ? Rest when you feel tired. Getting enough sleep will help you recover. ? Try to walk each day. Start by walking a little more than you did the day before. Bit by bit, increase the amount you walk. Walking boosts blood flow and helps prevent pneumonia and constipation. Walking may also decrease your muscle soreness after surgery. ? No lifting anything that is more that 5 pounds. This may include heavy grocery bags and milk containers, a heavy briefcase or backpack, cat litter or dog food bags, a child, or a vacuum shield cleaner. ? Avoid strenuous activities, such as bicycle riding, jogging, weightlifting, or aerobic exercise, until your doctor says it is okay. ? Do not drive until your follow-up visit after your surgery, or until your doctor says it isokay. ? Avoid taking long car trips for 2 to 4 weeks after surgery. Your neck may become tired and painful from sitting too long in one position. ? You will probably need to take 4 to 6 weeks off from work. It depends on the type of work you do and how you feel. ? You may have sex as soon as you feel able, but avoid positions that put stress on your neck or cause pain. Diet ? You can eat your normal diet. If your stomach is upset, try bland, low-fat foods like plain rice, broiled chicken, toast, and yogurt ? Drink plenty of fluids. If you have kidney, heart, or liver disease and have to limit fluids, talk with your doctor before you increase the amount of fluids you drink. ? You may notice that your bowel movements are not regular right after your surgery. This is common. Try to avoid constipation and straining with bowel movements. You may want to take a fiber supplement every day. If you have not had a bowel movement after a couple of days, ask your doctor about taking a mild laxative. Medicines ? Take pain medicines exactly as directed. 1. If Dr. Caldwell gave you a prescription medicine for pain, take lt as prescribed. 2. Do not take two or more pain medicines at the same time unless the doctor told you to. Many pain medicines have acetaminophen, which is Tylenol. Too much acetaminophen {Tylenol) can be harmful. 3. If you think your pain pill is making you sick to your stomach: 4. Take your pills after meals (unless your doctor has told you not to). 5. Ask your Dr. for a different pain pill. Incisioncare ? Remove your dressing 48hours after your surgery. Ok to shower and get the incision wet. Do not overtly wash your incision. When done, pad dry, leave open to air thereafter. Avoid creams and ointments directly on your incision. ? Your sutures in the incision will dissolve and fall out on their own. ? Keep the area clean and dry. You may cover it with a gauze bandage if it weeps or rubs against clothing; if you choose to do this, change the dressing everyday. Other instructions ? Use a heating pad, hot water bottle, or gentle massage on your back to reduce stiffness. Avoid putting heat on your incision When should you call for help? ? Call 911 anytime you think you may need emergency care. For example, call if: ? You pass out (lose consciousness). ? You have sudden chest pain and shortness of breath, or you cough upblood. ? You cannot swallow. ? You have severe pain in your neck or back. ? Call your Dr. or seek immediate medical care if: ? You have pain that does not get better after you take pain pills. ? You have loose stitches, or your incision comes open. ? You have blood or fluid draining from the incision. ? You have signs of infection, such as: 1. Increased pain, swelling, warmth, or redness. 2. Red streaks leading from the site. 3. Pus draining from the site. 4. Swollen lymph nodes in your neck or armpits. 5. A fever. ? You have severe pain in your arms. ? You have new or increased weakness or numbness in your arms. ? Watch closely for any changes in your health, and be sure to contact your doctor if: ? You do not have a bowel movement after taking a laxative. Discharge Attestations Time Spent in Discharge Care*: less than 30 min Quality Metrics Clinical Quality Measures [ No reported AMI, CVA or VTE this stay] Coding Level of Care Code Acute Code for Chg Fwd
== END 2024-10-15 09:46 | disposition home or self-care (01) | DRG 473 ==
LOC: MEDSURG 10-15 07:57
PROVIDERS: Admitting Provider Orthopaedic Surgery; PCP Nurse Practitioner Family; Visit Provider Orthopaedic Surgery
PROC: 0RB30ZZ Excision of Cervical Vertebral Disc, Open Approach (ICD-10-PCS; CPT 22551; principal; 2024-10-14 10:55)
DX: M47.12 Other spondylosis with myelopathy, cervical region (principal); M47.22 Other spondylosis with radiculopathy, cervical region; I10 Essential (primary) hypertension; K21.9 Gastro-esophageal reflux disease without esophagitis; J44.9 Chronic obstructive pulmonary disease, unspecified; F17.210 Nicotine dependence, cigarettes, uncomplicated; E03.9 Hypothyroidism, unspecified; F41.9 Anxiety disorder, unspecified; F32.A Depression, unspecified
CPT/HCPCS: 51702; 72040; 76000; 81001; 97116; 97161; A7003; C1713; C1763; C9359; J0690; J1171; J2250; J2405; J2704; J2710; J3010; J3490; J7030; J7120

== ENCOUNTER → 2024-10-22 08:30 | Outpatient (BNVA) | payer MEDICAID, SELFPAY | PROVIDERS: PCP Nurse Practitioner Family; Visit Provider Orthopaedic Surgery | DX: Z98.1 Arthrodesis status (principal) | CPT/HCPCS: 99024 ==

== ENCOUNTER → 2024-10-29 13:26 | Outpatient (BNVA) | payer MEDICAID, SELFPAY | PROVIDERS: PCP Nurse Practitioner Family; Visit Provider Orthopaedic Surgery | DX: Z98.1 Arthrodesis status (principal) | CPT/HCPCS: 99024 ==

== ENCOUNTER → 2024-11-17 14:08 | Outpatient (BNVA) | payer MEDICAID, SELFPAY | PROVIDERS: PCP Nurse Practitioner Family; Visit Provider Orthopaedic Surgery | DX: M54.2 Cervicalgia (principal) | CPT/HCPCS: 72040; 99024 ==

== ENCOUNTER → 2024-12-08 10:39 | Outpatient (BNVA) | payer MEDICAID, SELFPAY | PROVIDERS: PCP Nurse Practitioner; Visit Provider Nurse Practitioner | DX: I10 Essential (primary) hypertension (principal); E78.2 Mixed hyperlipidemia; E03.8 Other specified hypothyroidism; E55.9 Vitamin D deficiency, unspecified | CPT/HCPCS: 80053; 80061; 82306; 82607; 84443 ==

== ENCOUNTER → 2024-12-31 14:13 | Outpatient (BNVA) | payer MEDICAID, SELFPAY | PROVIDERS: PCP Nurse Practitioner; Visit Provider Orthopaedic Surgery | DX: Z98.1 Arthrodesis status (principal) | CPT/HCPCS: 72040; 99024 ==

== ENCOUNTER 2025-01-09 06:00 | Outpatient (RCR) | payer MEDICAID, SELFPAY | END 2025-02-08 23:59 | disposition home or self-care (01) | LOC: TPT 06:00 | PROVIDERS: Visit Provider Orthopaedic Surgery | DX: M54.2 Cervicalgia (principal); G89.29 Other chronic pain | CPT/HCPCS: 97161 ==

== ENCOUNTER → 2025-03-17 10:38 | Outpatient (BNVA) | payer MEDICAID, SELFPAY | PROVIDERS: PCP Nurse Practitioner; Visit Provider Nurse Practitioner | DX: E78.2 Mixed hyperlipidemia (principal); E55.9 Vitamin D deficiency, unspecified | CPT/HCPCS: 80053; 80061; 82306; 85025 ==

== ENCOUNTER → 2025-03-30 15:52 | Outpatient (BNVA) | payer MEDICAID, SELFPAY | PROVIDERS: PCP Nurse Practitioner; Visit Provider Orthopaedic Surgery | DX: Z98.1 Arthrodesis status (principal) | CPT/HCPCS: 72040; 99213 ==

== ENCOUNTER → 2025-05-04 13:47 | Outpatient (BNVA) | payer MEDICAID, SELFPAY | PROVIDERS: PCP Nurse Practitioner; Visit Provider Surgery | DX: K63.2 Fistula of intestine (principal) | CPT/HCPCS: 99204 ==

== ENCOUNTER 2025-05-10 14:52 | Outpatient (CLI) | payer MEDICAID, SELFPAY ==
[2025-05-10] MEDS: iohexol 350 mg/mL 500 mL Btl (per mL) IV (15:35)
[2025-05-10] MEDS: iohexol 350 mg/mL 500 mL Btl (per mL) PO (15:36)
--- NOTE | 2025-05-10 16:30 | CTR_ITS ---
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 Can be done only TECHNIQUE: Imaging protocol: Computed tomography of the abdomen and pelvis with contrast. Radiation optimization: All CT scans at this facility use at least one of these dose optimization techniques: automated exposure control; mA and/or kV adjustment per patient size (includes targeted exams where dose is matched to clinical indication); or iterative reconstruction. Contrast material: OMNI 350; Contrast volume: 100 ml; Contrast route: INTRAVENOUS (IV); COMPARISON: CT abdomen pelvis w con* [id number] 06/19/2023 10:50 PM RADIATION DOSE METRICS: Total DLP (mGy-cm): 749.92 FINDINGS: Liver: Normal. No mass. Gallbladder and biliary ducts: Status post cholecystectomy. Pancreas: Normal. No ductal dilation. Spleen: Normal. No splenomegaly. Adrenal glands: Normal. No mass. Kidneys and ureters: Normal. No hydronephrosis. Stomach and bowel: Rectally administered enteric contrast is seen throughout the colon. Contrast is also seen in the distal ileum, including the terminal ileum. No evidence of bowel obstruction. Appendix: No evidence of appendicitis. Intraperitoneal space: Unremarkable. No free air. No significant fluid collection. Vasculature: Unremarkable. No abdominal aortic aneurysm. Lymph nodes: Unremarkable. No enlarged lymph nodes. Urinary bladder: Unremarkable as visualized. Reproductive: Unremarkable as visualized. Bones/joints: Decreased sclerosis of the right pubic body compared with prior. No acute fracture. Soft tissues: Soft tissue tract is seen extending from the sigmoid colon to a loop of distal small bowel (best seen on coronal series 5 images 31-33 also seen on series 3 images 67-71). CT/CT abdomen pelvis w con* [id number] IMPRESSION: 1. 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 A small amount of rectally administered contrast is seen within the distal small bowel loop. However, it is also possible that the contrast has refluxed from the cecum into the distal small bowel. No associated inflammatory changes or abscess. 2. Otherwise no acute findings in the abdomen/pelvis. 3. Additional ancillary findings as above.
== END 2025-05-10 14:53 | disposition home or self-care (01) ==
LOC: RAD 14:53
PROVIDERS: PCP Nurse Practitioner; Visit Provider Surgery
DX: K63.2 Fistula of intestine (principal); R93.89 Abnormal findings on diagnostic imaging of other specified body structures; Z90.49 Acquired absence of other specified parts of digestive tract
CPT/HCPCS: 74177; 99204

== ENCOUNTER → 2025-05-19 13:27 | Outpatient (BNVA) | payer MEDICAID, SELFPAY | PROVIDERS: PCP Nurse Practitioner; Visit Provider Surgery | DX: Z09 Encounter for follow-up examination after completed treatment for conditions other than malignant neoplasm (principal) | CPT/HCPCS: 99212 ==

== ENCOUNTER → 2025-05-25 14:25 | Outpatient (BNVA) | payer MEDICAID, SELFPAY | PROVIDERS: PCP Nurse Practitioner; Visit Provider Nurse Practitioner | DX: I10 Essential (primary) hypertension (principal); E03.8 Other specified hypothyroidism; E55.9 Vitamin D deficiency, unspecified | CPT/HCPCS: 80053; 82306; 84443 ==

== ENCOUNTER 2025-05-26 13:10 | Outpatient (CLI) | payer MEDICAID, SELFPAY ==
--- NOTE | 2025-05-26 13:17 | XR_ITS ---
WS: [id number] XR lumbar spine 2-3V* [id number] REASON FOR EXAM: M79.10 - Myalgia, unspecified site FINDINGS: Minimal rotatory levoscoliosis. Normal lumbar lordosis. No significant compression deformity or focal lesion of the lumbar vertebrae. Mild osteophytosis of the vertebral bodies L2-L5. Mild narrowing of the L5-S1 disc space. No spondylolysis. No significant spondylolisthesis. XR/XR lumbar spine 2-3V* [id number] IMPRESSION: Minimal degenerative spondylosis as above.
== END 2025-05-26 13:11 | disposition home or self-care (01) ==
PROVIDERS: PCP Nurse Practitioner; Visit Provider Nurse Practitioner
DX: M79.10 Myalgia, unspecified site (principal); M48.07 Spinal stenosis, lumbosacral region
CPT/HCPCS: 72100

== ENCOUNTER → 2025-07-22 15:54 | Outpatient (BNVA) | payer MEDICAID, SELFPAY | PROVIDERS: PCP Nurse Practitioner; Visit Provider Nurse Practitioner | DX: J02.9 Acute pharyngitis, unspecified (principal) | CPT/HCPCS: 87880 ==

== ENCOUNTER 2025-08-05 09:15 | Outpatient (CLI) | payer MEDICAID, SELFPAY ==
--- NOTE | 2025-08-05 09:30 | MR_ITS ---
WS: [id number] MRI BRAIN WITHOUT CONTRAST HISTORY: R51.9 - Headache, unspecified COMPARISON: None available. TECHNIQUE: Diffusion imaging, multiplanar T1, T2 and FLAIR imaging obtained. No evidence for acute infarct or hemorrhage. Parsons-white matter differentiation is normal. Normal hippocampal formations. No remote or acute infarcts or volume loss. Ventricles and extra-axial spaces are normal. No inferior displacement of cerebellar tonsils. Empty sella turcica. Pituitary gland small and compressed within the floor of the sella. Dural venous sinuses and [place] demonstrate no abnormality on this unenhanced studies. Paranasal sinuses: Mild mucoperiosteal thickening in the ethmoid air cells. Mastoid air cells: Normal. Calvarium and scalp: Intact. MR/MR head wo con* [id number] IMPRESSION: 1. Unremarkable noncontrast MRI brain. 2. No prior infarct or small vessel disease. 3. Mild ethmoid air cell disease.
== END 2025-08-05 09:16 | disposition home or self-care (01) ==
LOC: RAD 09:16
PROVIDERS: PCP Nurse Practitioner; Visit Provider Nurse Practitioner
DX: R51.9 Headache, unspecified (principal)
CPT/HCPCS: 70551

== ENCOUNTER → 2025-08-31 10:51 | Outpatient (BNVA) | payer MEDICAID, SELFPAY | PROVIDERS: PCP Nurse Practitioner; Visit Provider Nurse Practitioner | DX: I10 Essential (primary) hypertension (principal) | CPT/HCPCS: 80053; 85025 ==

== ENCOUNTER → 2025-10-14 10:29 | Outpatient (BNVA) | payer MEDICAID, SELFPAY | PROVIDERS: PCP Nurse Practitioner; Visit Provider Orthopaedic Surgery | DX: Z47.89 Encounter for other orthopedic aftercare (principal); Z98.1 Arthrodesis status | CPT/HCPCS: 72040; 81000; 87491; 87591; 99213 ==